=== PATIENT | male | born 1960 | race Caucasian/White ===

== ENCOUNTER → 2019-04-28 10:05 | Outpatient (CLI) | payer OTHER, MEDICAID, SELFPAY ==
[2019-04-28 11:19] LABS: Add Manual Diff / Slide Review NO; Basophils Absolute Auto 0 /uL (0-100); Basophils Percent Auto 0.5 % (0-2); Eosinophils Absolute Auto 300 /uL (0-450); Eosinophils Percent Auto 4.4 % (2-4); Lymphocytes Absolute Auto 1300 /uL (1100-4500); Lymphocytes Percent Auto 22.3 % (25-40); Mean Corpuscular Hemoglobin 29.4 PG (26-34); Mean Corpuscular Volume 86.4 fL (80-100); Monocytes Absolute Auto 600 /uL (0-900); Monocytes Percent Auto 9.5 % (3-14); Neutrophils Absolute Auto 3800 /uL (1500-7000); Neutrophils Percent Auto 63.3 % (50-75); Platelet Count 263 X10^3/uL (150-400); Red Cell Distribution Width 13.3 % (11.6-14.8)
[2019-04-28 11:52] LABS: Alanine Aminotransferase 43 IU/L (21-72); Albumin 4.6 g/dL (3.5-5.0); Albumin Globulin Ratio 1.4 (1.0-2.8); Alkaline Phosphatase 109 U/L (38-126); Aspartate Aminotransferase 33 IU/L (17-59); BUN Creatinine Ratio 18.8 (6-22); Bilirubin Total 0.7 mg/dL (0.2-1.3); Blood Urea Nitrogen 15 mg/dL (9-20); Calcium 9.8 mg/dL (8.4-10.2); Carbon Dioxide 30 mmol/L (22-32); Chloride 101 mmol/L (98-107); Cholesterol 279 mg/dL (140-199); Estimated Glomerular Filt Rate > 60.0 mL/min (>60); Globulin 3.4 g/dL (1.7-4.1); Glucose 121 mg/dL (70-100); HDL Cholesterol 49 mg/dL (40-60); HEMOLYSIS < 15 (0-50); LDL Cholesterol Calculated 206 mg/dL (<100); Potassium 4.6 mmol/L (3.4-5.1); Sodium 140 mmol/L (137-145); Triglycerides 121 mg/dL (35-150)
[2019-04-28 12:22] LABS: Prostate Specific Antigen 2.31 ng/mL (0.10-4.00)
[2019-04-29 14:56] LABS: Lyme SCREEN w/ Reflex IgG IgM < 0.90 (< 0.90)
== END ==
PROVIDERS: Visit Provider Hospitalist
DX: R59.9 Enlarged lymph nodes, unspecified (principal); R07.89 Other chest pain
CPT/HCPCS: 36415; 80053; 80061; 84153; 85025; 86618

== ENCOUNTER → 2019-05-13 11:03 | Outpatient (CLI) | payer OTHER, MEDICAID, SELFPAY ==
[2019-05-13 12:15] LABS: Hemoglobin A1C% w Est Avg Glu 6.2 % (4.0-6.0)
[2019-05-13 13:15] LABS: Cholesterol 174 mg/dL (140-199); HDL Cholesterol 44 mg/dL (40-60); LDL Cholesterol Calculated 98 mg/dL (<100); Triglycerides 160 mg/dL (35-150)
== END ==
PROVIDERS: PCP Hospitalist; Visit Provider Hospitalist
DX: E78.5 Hyperlipidemia, unspecified (principal); R73.09 Other abnormal glucose
CPT/HCPCS: 36415; 80061; 83036

== ENCOUNTER → 2019-05-29 09:07 | Outpatient (CLI) | payer OTHER, MEDICAID, SELFPAY ==
--- NOTE | 2019-05-29 10:33 | PM.TREADMILL ---
Cardiac Stress Test Report Referral & Results Date Patient Seen: 05/29/19 Requesting provider: Amy Espinoza Indication: Chest pain Rest ECG: Right bundle branch block Procedure Note: Today following both written and verbal informed consent the patient was exercised according to a standard Isidro protocol patient went for a total of 7 minutes 2nd achieving a maximum heart rate of 166 maximum systolic blood pressure of 194. This is approximately 10.1 METS. Exercise was terminated at this point because of targets were met. Patient was also given Cardiolite through a previously started Hep-Lock IV by the ground nuclear weapons assembly officer approximately 1 minute prior to the cessation of exercise. There were no ST-T segment changes identified in the setting of a baseline abnormal ECG At end exercise patient went into a left bundle branch block conduction pattern it appeared that was asymptomatic. He spontaneously converted back to sinus tachycardia Occasional PACs and PVCs are also identified Functional aerobic impairment rated 15% of the sedentary scale Impression: Abnormal ECG a baseline No clear ischemia on ECG Please see perfusion imaging report as well Please note: Actual ECG tracings can be found in the PACS system.
--- NOTE | 2019-06-01 20:22 | DI.NM.S_ITS ---
DATE OF SERVICE: 05/29/2019 PROCEDURE: Exercise perfusion study. INDICATIONS: Hypertension, chest pain, hyperlipidemia. RADIOPHARMACEUTICAL: 19.4 mCi technetium-99m Myoview IV was injected at stress and 20.2 mCi technetium-99m Myoview IV was injected at rest. CARDIAC STRESS: Patient underwent exercise perfusion study under the supervision of an attending staff. Patient walked on Isidro protocol for 7 minutes 01 seconds and achieved 103% of target heart rate with normal blood pressure response. He achieved 10.1 METs of workload. Functional aerobic impairment +25%. Had mild chest discomfort. Baseline EKG revealed sinus rhythm with underlying right bundle branch block. Stress EKG did not reveal any obvious inducible ischemic changes. Occasional PACs and PVCs are seen. No significant sustained arrhythmias seen. RAW DATA: There was increased subdiaphragmatic activity. GATED STUDY: Resting LV ejection 74, and stress LV ejection fraction 89%. No obvious wall motion abnormalities. Resting end-diastolic volume is 88 mL. No transient ischemic dilatation. TID ratio is 0.8, which is within normal limits. Lung/heart ratio is 0.28, which is within normal limits. MYOCARDIAL PERFUSION SCAN: Stress supine and resting supine images revealed small-sized mildly decreased perfusion of inferior apex, as well as inferior septum which got resolved during prone images suggestive of tissue attenuation artifact. Normal myocardial perfusion seen during stress prone images. CONCLUSION: I will call this study a normal myocardial perfusion study. Patient walked on Isidro protocol for 7 minutes and 01 seconds. Functional aerobic impairment +25%. Normal blood pressure and heart rate response. Baseline EKG revealed right bundle branch block. No sustained arrhythmias seen. Overall, left ventricular (LV) function is preserved. Overall, this is a low-risk myocardial perfusion scan. Betito Michaud - TANJA/judi/ab doc#: [id number]/job#: [id number] dd: 06/01/2019 18:03:00 dt: 06/01/2019 20:15:00 DICTATING MD/COPIES TO: Joshua Nunez MD COPIES MNE: ZULMA
== END ==
PROVIDERS: PCP Hospitalist; Visit Provider Hospitalist
DX: R07.89 Other chest pain (principal); I45.10 Unspecified right bundle-branch block; I10 Essential (primary) hypertension; E78.5 Hyperlipidemia, unspecified
CPT/HCPCS: 78452; 93016; 93017; 93018; A9502

== ENCOUNTER → 2019-07-08 14:59 | Outpatient (CLI) | payer OTHER, MEDICAID, SELFPAY ==
[2019-07-08 15:30] LABS: Erythrocyte Sedimentation Rate 54 MM/HR (0-15)
[2019-07-10 19:25] LABS: ANA Screen, IFA Negative (Negative)
== END ==
PROVIDERS: PCP Hospitalist; Visit Provider Hospitalist
DX: M54.9 Dorsalgia, unspecified (principal)
CPT/HCPCS: 36415; 85651; 86038

== ENCOUNTER → 2019-07-10 10:23 | Outpatient (CLI) | payer OTHER, MEDICAID, SELFPAY | PROVIDERS: PCP Hospitalist; Visit Provider Hospitalist | DX: M79.10 Myalgia, unspecified site (principal) ==

== ENCOUNTER → 2019-07-13 13:13 | Outpatient (CLI) | payer OTHER, MEDICAID, SELFPAY ==
--- NOTE | 2019-07-13 13:15 | DI.RAD.S_ITS ---
PROCEDURE: XR LUMBAR SPINE 2-3V INDICATIONS: back pain TECHNIQUE: 3 views of the lumbar spine were acquired. COMPARISON: None. FINDINGS: Bones: 5 zak-[id number]-[id number] vertebrae are present. There is normal bony alignment. There is a mild mild to moderate degree of degenerative disc height reduction at L5-S1, and facet osteoarthritis in this area is moderate to the degree that spinal and foraminal stenosis at L5-S1 may be present. No vertebral body compression fractures. No suspicious bony lesions. Soft tissues: Overlying bowel gas pattern is normal. No suspicious soft tissue calcifications. IMPRESSION: Mild to moderate degenerative disc disease and facet osteoarthritis at the L5-S1 level combining to produce likelihood of spinal and foraminal stenosis. Dictated by: Ector Rawls M.D. on 07/13/2019 at 14:10 Approved by: Ector Rawls M.D. on 07/13/2019 at 14:11
== END ==
PROVIDERS: PCP Hospitalist; Visit Provider Hospitalist
DX: M54.9 Dorsalgia, unspecified (principal); M51.37 Other intervertebral disc degeneration, lumbosacral region; M47.817 Spondylosis without myelopathy or radiculopathy, lumbosacral region
CPT/HCPCS: 72100

== ENCOUNTER 2019-08-19 13:45 | Outpatient (RCR) | payer OTHER, MEDICAID, SELFPAY ==
--- NOTE | 2019-07-10 16:51 | PT.OIE ---
Current Diagnoses Low back pain (07/10/19) Past Medical History (Last Reviewed 07/08/19 @ 15:01 by Amy Espinoza MD) HTN (hypertension) (Acute) Provider Visit Care Team Role Provider Type Amy Espinoza MD Attending Provider Physician Primary Care Provider Specialty: Internal Medicine Address: [address] [place] [address], [id number] Email: Physical Therapy Initial Evaluation PT-OP-A Visit Information Start: 07/10/19 14:42 Freq: Status: Active Protocol: Document 07/10/19 13:45 DCW (Rec: 07/10/19 15:15 DCW [id number]) Out-Patient Physical Therapy Visit Information Visit Information Visit Type Initial Evaluation Visit Start Time 13:45 Visit Stop Time 14:30 Total Visit Minutes 45 Visit Number 1 Number of WEB MARKETING SPECIALIST Visits 0 Evaluation Information Evaluation Date 07/10/19 PT-OP-B Current Condition Start: 07/10/19 14:42 Freq: Status: Active Protocol: Document 07/10/19 13:45 DCW (Rec: 07/10/19 15:15 DCW [id number]) Current Condition History of Current Condition Onset Date 6 month history Current Complaints thoracic pain, lumbar pain, radicular right leg pain History of Current Condition Pt is a 58 year old male presenting with a six month history of mid- and low-back pain. Pt reports there was no instigating injury, it just flared up unexpectedly one day . Pt notes that over the last six months, it has not really changed much, overall, but seems to get better and worse randomly. Pt admits that lifting seems to flare it up, but the pain never really goes away, so its hard to tell what all makes it feel worse or better. Pt reports that in the morning, it typically takes him more than an hour to move around enough to loosen up. 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 Pt also notes a life-long history of hip immobility, reporting that when he was in school, he would always W sit, as sitting cross-legged is painful for him, and he is still significantly limited with external rotation. Pt reports his pain initially began in his thoracic spine, and radiated out along his ribs. Over the past few months , his lumbar spine has also been worsening, and it often causes radicular pain down his right leg. Pt also always sits with his wallet in his back pocket, and notes that it causes enough pain that he sometimes needs to switch it to the other side. Future Testing and Treatments Planned Pt has referral for lumbar x- ray Prior Functional Status Baseline Function- ADL's Independent Baseline Function- Mobility Independent Current Functional Impairments (Reported) Functional Limitations- Work/School Pt only able to tolerate 16 hour work weeks Functional Limitations- Other Pt takes one hour after waking up to try and move around and loosen up enough to decrease his pain PT-OP-C Subjective Start: 07/10/19 14:42 Freq: Status: Active Protocol: Document 07/10/19 13:45 DCW (Rec: 07/10/19 15:15 DCW [id number]) OP-PT Subjective Patient Comments Patient Comments Pt reports that pain varies day-to-day, but overall has not worsened or improved since beginning six months ago. Patient Reported Progress Same OP-PT Pain Assessment Pain Assessment Grid Paper Pain Assessment Grid Completed Yes Location Thoracic spine Intensity 7 Scale Used Numeric (1 - 10) Description Radiating Radiating Location bilaterally radiates out around torso along ribs 8-10 Lumbar spine Intensity 7 Scale Used Numeric (1 - 10) Description Radiating Radiating Location Posterior thigh wrapping around front along knee PT-OP-F Manual Assessment Start: 07/10/19 14:42 Freq: Status: Active Protocol: Document 07/10/19 13:45 DCW (Rec: 07/10/19 15:15 DCW [id number]) Manual Assessments Soft Tissue Assessment Soft Tissue Mobility Assessment Moderate-severe tone: thoracic paraspinals, lumbar paraspinals, right piriformis, right QL Joint Mobility Assessment Joint Mobility Assessment Rib 8 raised bilaterally, L>R. Rib 10 raised L Moderate pain with P->A mobilization of T8-10, L3-L5 PT-OP-K Range of Motion Start: 07/10/19 14:42 Freq: Status: Active Protocol: Document 07/10/19 13:45 DCW (Rec: 07/10/19 15:15 DCW [id number]) Lumbar Spine Range of Motion Lumbar Spine Active Degrees Testing Position Standing Flexion 45 Extension 15 Lateral Flexion Left 58 Lateral Flexion Right 60 Comments Lateral flexion measured in cm : distance from fingertips to floor Hip Goniometric Range of Motion Hip Right Active Internal Rotation 65 External Rotation 8 Left Active Testing Position Sitting Internal Rotation 68 External Rotation 10 PT-OP-L Special Tests Start: 07/10/19 14:42 Freq: Status: Active Protocol: Document 07/10/19 13:45 DCW (Rec: 07/10/19 15:15 DCW [id number]) Special Tests Lumbar Spine Special Tests Straight Leg Raise Test Results Negative passive, positive active Standing Flexion Test Results Negative Slump Test Results Negative Passive Neck Flexion Test Results Negative Compression Test Results Negative Hip Special Tests Piriformis Test Results Significant tenderness and tone, no radicular symptoms ASIM Test Results Lateral hip pain due to limited ER bilaterally PT-OP-Q Treatments Start: 07/10/19 14:42 Freq: Status: Active Protocol: Document 07/10/19 13:45 DCW (Rec: 07/10/19 15:15 DCW [id number]) Therapeutic Exercises Supine Exercises Piriformis Stretch Supine Exercise Name Figure-4, Ampy-po-wmrtqudb shoulder Side right Comments Causes pain due to limited ER Self-Care/Home Management Treatment Education Patient Education Home Exercise Program Other Education Pt unable to toelrate piriformis stretch secondary to severely limited ER. Instructed to use tennis ball to work on release of piriformis, as well as to begin placing wallet in front pocket. PT-OP-T Assessment and Plan Start: 07/10/19 14:42 Freq: Status: Active Protocol: Document 07/10/19 13:45 DCW (Rec: 07/10/19 15:15 DCW [id number]) Physical Therapy Assessment Rehab Potential Rehabilitation Potential Good Evaluation Complexity Number of Personal Factors/Comorbidities 1-2 Number of Body Systems Impaired 4 or More Clinical Presentation at Evaluation Evolving Impairments Impairments Functional Activities Pain Posture ROM Soft Tissue Mobility Strength Tone Goals Four Impairment Pt wallet in back pocket causes increased pain in posterior hips and low ba Short Term Goal (STG) Pt to completely stop placing wallet in back pocket STG Duration 07/24/19 Three Impairment Severely limited hip external rotation Mcc Goal (LTG) Hip ER bilaterally to >20? LTG Duration 09/09/19 Two Impairment Pt only able to tolerate a 16 hour work week due to back pain Pe Teacher Goal (LTG) Pt to return to full 40 hour work week with pain at no worst than 4/10 LTG Duration 09/09/19 One Impairment Pt does not have an appropriate home exercise program Short Term Goal (STG) Pt to be independent and compliant with an appropraite HEP STG Duration 08/10/19 Assessment Summary Assessment Pt presents with signs and symptoms of likely lumbar degenerative disc disease, hypertonia through his thoracolumbar paraspinals, bilateral QL, and piriformis, severely limited hip external rotation as well as mild displacement of his L eighth and tenth ribs. Pt did appear to tolerate trial rib mobilizations well, and reported feeling improvement afterward. Pt should continue to progress with skilled therapy focusing on STM, joint mobilizations, hip ROM, hip and core strengthening, and training for body mechanics and to stop placing wallet in back pocket. Physical Therapy Plan Frequency and Duration Frequency of Treatment 2x/Week Duration of Treatment 2 months Plan of Care Start Date 07/10/19 Plan of Care End Date 09/09/19 Therapeutic Interventions Therapeutic Interventions Aquatic Therapy Home Exercise Program Joint Mobilizations Manual Therapy Neuromuscular Re-education Patient/Caregiver Education Self-Care/Home Management Soft Tissue Mobilization Therapeutic Exercises Next Visit Focus/Plan Next Note Type Treatment Note Next Visit Plan STM, hip ROM/strengthening, joint mobilization ribs 8-10, low back
--- NOTE | 2019-07-10 16:52 | PT.OPPOC ---
Current Diagnoses Low back pain (07/10/19) Provider Visit Care Team Role Provider Type Amy Espinoza MD Attending Provider Physician Primary Care Provider Specialty: Internal Medicine Address: [address] [place] [address], [id number] Email: Plan Of Care PT-OP-T Assessment and Plan Start: 07/10/19 14:42 Freq: Status: Active Protocol: Document 07/10/19 13:45 DCW (Rec: 07/10/19 15:15 DCW [id number]) Physical Therapy Assessment Rehab Potential Rehabilitation Potential Good Evaluation Complexity Number of Personal Factors/Comorbidities 1-2 Number of Body Systems Impaired 4 or More Clinical Presentation at Evaluation Evolving Impairments Impairments Functional Activities Pain Posture ROM Soft Tissue Mobility Strength Tone Goals Four Impairment Pt wallet in back pocket causes increased pain in posterior hips and low ba Short Term Goal (STG) Pt to completely stop placing wallet in back pocket STG Duration 07/24/19 Three Impairment Severely limited hip external rotation Senior Care Goal (LTG) Hip ER bilaterally to >20? LTG Duration 09/09/19 Two Impairment Pt only able to tolerate a 16 hour work week due to back pain Behavior Interventionist Goal (LTG) Pt to return to full 40 hour work week with pain at no worst than 4/10 LTG Duration 09/09/19 One Impairment Pt does not have an appropriate home exercise program Short Term Goal (STG) Pt to be independent and compliant with an appropraite HEP STG Duration 08/10/19 Assessment Summary Assessment Pt presents with signs and symptoms of likely lumbar degenerative disc disease, hypertonia through his thoracolumbar paraspinals, bilateral QL, and piriformis, severely limited hip external rotation as well as mild displacement of his L eighth and tenth ribs. Pt did appear to tolerate trial rib mobilizations well, and reported feeling improvement afterward. Pt should continue to progress with skilled therapy focusing on STM, joint mobilizations, hip ROM, hip and core strengthening, and training for body mechanics and to stop placing wallet in back pocket. Physical Therapy Plan Frequency and Duration Frequency of Treatment 2x/Week Duration of Treatment 2 months Plan of Care Start Date 07/10/19 Plan of Care End Date 09/09/19 Therapeutic Interventions Therapeutic Interventions Aquatic Therapy Home Exercise Program Joint Mobilizations Manual Therapy Neuromuscular Re-education Patient/Caregiver Education Self-Care/Home Management Soft Tissue Mobilization Therapeutic Exercises Next Visit Focus/Plan Next Note Type Treatment Note Next Visit Plan STM, hip ROM/strengthening, joint mobilization ribs 8-10, low back Plan of Care Dates Plan of Care Start Date 07/10/19 Plan of Care End Date 09/09/19 Please Sign and Return: I have reviewed this Plan of Care and certify that the skilled therapy services above are required to meet the patient?s needs. Physician Signature Date Printed Name and Credentials Clinical Instructor Signature Printed Name and Credentials
--- NOTE | 2019-07-28 14:50 | PT.OTN ---
Current Diagnoses Low back pain (07/28/19) Physical Therapy Treatment Note PT-OP-A Visit Information Start: 07/10/19 14:42 Freq: Status: Active Protocol: Document 07/28/19 14:41 [facility] (Rec: 07/28/19 14:50 [facility] [id number]) Out-Patient Physical Therapy Visit Information Visit Information Visit Type Treatment Note Visit Start Time 09:45 Visit Stop Time 10:30 Total Visit Minutes 45 Visit Number 2 Number of SPECIAL EDUCATION PARAEDUCATOR Visits 0 Evaluation Information Evaluation Date 07/10/19 PT-OP-B Current Condition Start: 07/10/19 14:42 Freq: Status: Active Protocol: Document 07/10/19 13:45 DCW (Rec: 07/10/19 15:15 DCW [id number]) Current Condition History of Current Condition Onset Date 6 month history Current Complaints thoracic pain, lumbar pain, radicular right leg pain History of Current Condition Pt is a 58 year old male presenting with a six month history of mid- and low-back pain. Pt reports there was no instigating injury, it just flared up unexpectedly one day . Pt notes that over the last six months, it has not really changed much, overall, but seems to get better and worse randomly. Pt admits that lifting seems to flare it up, but the pain never really goes away, so its hard to tell what all makes it feel worse or better. Pt reports that in the morning, it typically takes him more than an hour to move around enough to loosen up. 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 Pt also notes a life-long history of hip immobility, reporting that when he was in school, he would always W sit, as sitting cross-legged is painful for him, and he is still significantly limited with external rotation. Pt reports his pain initially began in his thoracic spine, and radiated out along his ribs. Over the past few months , his lumbar spine has also been worsening, and it often causes radicular pain down his right leg. Pt also always sits with his wallet in his back pocket, and notes that it causes enough pain that he sometimes needs to switch it to the other side. Future Testing and Treatments Planned Pt has referral for lumbar x- ray Prior Functional Status Baseline Function- ADL's Independent Baseline Function- Mobility Independent Current Functional Impairments (Reported) Functional Limitations- Work/School Pt only able to tolerate 16 hour work weeks Functional Limitations- Other Pt takes one hour after waking up to try and move around and loosen up enough to decrease his pain PT-OP-C Subjective Start: 07/10/19 14:42 Freq: Status: Active Protocol: Document 07/28/19 14:41 [facility] (Rec: 07/28/19 14:50 [facility] [email or web address]) OP-PT Subjective Patient Comments Patient Comments Betito reports he is doing better than he was two weeks ago. He has been working on his stretches at home PT-OP-F Manual Assessment Start: 07/10/19 14:42 Freq: Status: Active Protocol: Document 07/10/19 13:45 DCW (Rec: 07/10/19 15:15 DCW [id number]) Manual Assessments Soft Tissue Assessment Soft Tissue Mobility Assessment Moderate-severe tone: thoracic paraspinals, lumbar paraspinals, right piriformis, right QL Joint Mobility Assessment Joint Mobility Assessment Rib 8 raised bilaterally, L>R. Rib 10 raised L Moderate pain with P->A mobilization of T8-10, L3-L5 PT-OP-K Range of Motion Start: 07/10/19 14:42 Freq: Status: Active Protocol: Document 07/10/19 13:45 DCW (Rec: 07/10/19 15:15 DCW [id number]) Lumbar Spine Range of Motion Lumbar Spine Active Degrees Testing Position Standing Flexion 45 Extension 15 Lateral Flexion Left 58 Lateral Flexion Right 60 Comments Lateral flexion measured in cm : distance from fingertips to floor Hip Goniometric Range of Motion Hip Right Active Internal Rotation 65 External Rotation 8 Left Active Testing Position Sitting Internal Rotation 68 External Rotation 10 PT-OP-L Special Tests Start: 07/10/19 14:42 Freq: Status: Active Protocol: Document 07/10/19 13:45 DCW (Rec: 07/10/19 15:15 DCW [id number]) Special Tests Lumbar Spine Special Tests Straight Leg Raise Test Results Negative passive, positive active Standing Flexion Test Results Negative Slump Test Results Negative Passive Neck Flexion Test Results Negative Compression Test Results Negative Hip Special Tests Piriformis Test Results Significant tenderness and tone, no radicular symptoms ASIM Test Results Lateral hip pain due to limited ER bilaterally PT-OP-Q Treatments Start: 07/10/19 14:42 Freq: Status: Active Protocol: Document 07/28/19 14:41 [facility] (Rec: 07/28/19 14:50 [facility] [email or web address]) Therapeutic Exercises Supine Exercises 6 Supine Exercise Name 1/2 foam roll stretch 5 Supine Exercise Name iliopsoas stretch in azalea test position 4 Supine Exercise Name single knee to chest 3 Supine Exercise Name ITB stretch with strap 2 Supine Exercise Name adductor stretch with strap 1 Supine Exercise Name Hamstring stretch with strap and with hands behind the knee Comments with hands behind the knee I had Betito flex and extend his leg Piriformis Stretch Supine Exercise Name Figure-4, Swtm-qy-hghestwc shoulder Side right Prone Exercises 1 Prone Exercise Name prone quad stretch Comments strap use for HEP Manual Therapy Treatment Joint Mobilizations 2 Joint rib cage mobilization Comments sore on the right side with rib cage mobs 1 Joint PA mobs thoracic spine in prone PT-OP-T Assessment and Plan Start: 07/10/19 14:42 Freq: Status: Active Protocol: Document 07/28/19 14:41 [facility] (Rec: 07/28/19 14:50 [facility] [id number]) Physical Therapy Assessment Assessment Summary Assessment Betito did well with stretches today, he was able to tolerate them all. He is very limited with hip ER but tolerated both knee across chest and figure 4 position without lifting up his legs today. He has stopped placing his wallet in his back pocket Physical Therapy Plan Frequency and Duration Frequency of Treatment 2x/Week Duration of Treatment 2 months Plan of Care Start Date 07/10/19 Plan of Care End Date 09/09/19 Next Visit Focus/Plan Next Note Type Treatment Note Next Visit Plan STM, hip ROM/strengthening, joint mobilization ribs 8-10, low back. Pt may benefit from diaphragmatic breathing with rib cage excursion
--- NOTE | 2019-07-30 17:06 | PT.OTN ---
Current Diagnoses Low back pain (07/30/19) Physical Therapy Treatment Note PT-OP-A Visit Information Start: 07/10/19 14:42 Freq: Status: Active Protocol: Document 07/30/19 11:54 AR (Rec: 07/30/19 12:10 AR [email or web address]) Out-Patient Physical Therapy Visit Information Visit Information Visit Type Treatment Note Visit Start Time 09:00 Visit Stop Time 09:43 Total Visit Minutes 43 Visit Number [address] JUSTICE Visits 0 PT-OP-B Current Condition Start: 07/10/19 14:42 Freq: Status: Active Protocol: Document 07/10/19 13:45 DCW (Rec: 07/10/19 15:15 DCW [id number]) Current Condition History of Current Condition Onset Date 6 month history Current Complaints thoracic pain, lumbar pain, radicular right leg pain History of Current Condition Pt is a 58 year old male presenting with a six month history of mid- and low-back pain. Pt reports there was no instigating injury, it just flared up unexpectedly one day . Pt notes that over the last six months, it has not really changed much, overall, but seems to get better and worse randomly. Pt admits that lifting seems to flare it up, but the pain never really goes away, so its hard to tell what all makes it feel worse or better. Pt reports that in the morning, it typically takes him more than an hour to move around enough to loosen up. 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 Pt also notes a life-long history of hip immobility, reporting that when he was in school, he would always W sit, as sitting cross-legged is painful for him, and he is still significantly limited with external rotation. Pt reports his pain initially began in his thoracic spine, and radiated out along his ribs. Over the past few months , his lumbar spine has also been worsening, and it often causes radicular pain down his right leg. Pt also always sits with his wallet in his back pocket, and notes that it causes enough pain that he sometimes needs to switch it to the other side. Future Testing and Treatments Planned Pt has referral for lumbar x- ray Prior Functional Status Baseline Function- ADL's Independent Baseline Function- Mobility Independent Current Functional Impairments (Reported) Functional Limitations- Work/School Pt only able to tolerate 16 hour work weeks Functional Limitations- Other Pt takes one hour after waking up to try and move around and loosen up enough to decrease his pain PT-OP-C Subjective Start: 07/10/19 14:42 Freq: Status: Active Protocol: Document 07/30/19 11:54 AR (Rec: 07/30/19 12:10 AR [email or web address]) OP-PT Subjective Patient Comments Patient Comments Pt reports compliance with stretches and said they have improved his back pain 100%. He said he has never had any restrictions but he is still having some trouble with walking and getting out of bed d/t pain. PT-OP-F Manual Assessment Start: 07/10/19 14:42 Freq: Status: Active Protocol: Document 07/10/19 13:45 DCW (Rec: 07/10/19 15:15 DCW [id number]) Manual Assessments Soft Tissue Assessment Soft Tissue Mobility Assessment Moderate-severe tone: thoracic paraspinals, lumbar paraspinals, right piriformis, right QL Joint Mobility Assessment Joint Mobility Assessment Rib 8 raised bilaterally, L>R. Rib 10 raised L Moderate pain with P->A mobilization of T8-10, L3-L5 PT-OP-K Range of Motion Start: 07/10/19 14:42 Freq: Status: Active Protocol: Document 07/10/19 13:45 DCW (Rec: 07/10/19 15:15 DCW [id number]) Lumbar Spine Range of Motion Lumbar Spine Active Degrees Testing Position Standing Flexion 45 Extension 15 Lateral Flexion Left 58 Lateral Flexion Right 60 Comments Lateral flexion measured in cm : distance from fingertips to floor Hip Goniometric Range of Motion Hip Right Active Internal Rotation 65 External Rotation 8 Left Active Testing Position Sitting Internal Rotation 68 External Rotation 10 PT-OP-L Special Tests Start: 07/10/19 14:42 Freq: Status: Active Protocol: Document 07/10/19 13:45 DCW (Rec: 07/10/19 15:15 DCW [id number]) Special Tests Lumbar Spine Special Tests Straight Leg Raise Test Results Negative passive, positive active Standing Flexion Test Results Negative Slump Test Results Negative Passive Neck Flexion Test Results Negative Compression Test Results Negative Hip Special Tests Piriformis Test Results Significant tenderness and tone, no radicular symptoms ASIM Test Results Lateral hip pain due to limited ER bilaterally PT-OP-Q Treatments Start: 07/10/19 14:42 Freq: Status: Active Protocol: Document 07/30/19 11:54 AR (Rec: 07/30/19 12:10 AR [email or web address]) Therapeutic Exercises Supine Exercises TA activation Supine Exercise Name TA iso, with marches & bent knee fall outs Side bilateral Reps/Minutes 20 ea Comments pt able to engage TA and stabilize during LE movements 5 Supine Exercise Name iliopsoas stretch in azalea test position Comments reviewed from HEP Piriformis Stretch Supine Exercise Name Figure-4, Frbr-tm-[id number] shoulder Side right Therapeutic Activity Therapeutic Activity diaphragmatic breathing Name diaphragmatic breathing w/rib expansion focus Reps/Minutes 6 min Comments pt unable to acheive rib excusion at first, cued to relax completely with exhales. pt holding ribs laterally for cueing. added to HEP weight acceptance Name in mirror, focusing on shifting weight w/o lateral trunk lean or pelvic rot Reps/Minutes 6 min Comments B stagger stance Manual Therapy Treatment Soft Tissue Mobilization pectorals Body Location min & tucker Mobilization Type Strumming,Sustained Pressure Intensity/Depth Deep Body Position Supine Comments 90/90 ER with contract/relax Joint Mobilizations 2 Joint rib cage mobilization Comments reported mobilizations felt good PT-OP-T Assessment and Plan Start: 07/10/19 14:42 Freq: Status: Active Protocol: Document 07/30/19 11:54 AR (Rec: 07/30/19 12:10 AR [email or web address]) Physical Therapy Assessment Goals Four Impairment Pt wallet in back pocket causes increased pain in posterior hips and low ba Short Term Goal (STG) Pt to completely stop placing wallet in back pocket STG Duration 07/24/19 Three Impairment Severely limited hip external rotation Fpc Goal (LTG) Hip ER bilaterally to >20? LTG Duration 09/09/19 Two Impairment Pt only able to tolerate a 16 hour work week due to back pain Fpc Goal (LTG) Pt to return to full 40 hour work week with pain at no worst than 4/10 LTG Duration 09/09/19 One Impairment Pt does not have an appropriate home exercise program Short Term Goal (STG) Pt to be independent and compliant with an appropraite HEP STG Duration 08/10/19 Assessment Summary Assessment Pt presented with dec stride length and slight lateral trunk lean. Pt has been compliant with stretches and feels they have solved the majority of his problem. Rib mobility responded well to manual therapy and pt reported less tenderness today than previous sessions. Physical Therapy Plan Frequency and Duration Frequency of Treatment 2x/Week Duration of Treatment 2 months Plan of Care Start Date 07/10/19 Plan of Care End Date 09/09/19 Next Visit Focus/Plan Next Note Type Treatment Note Next Visit Plan review diaphragmatic breathing with rib cage excusion and TA activation. STM, hip moblizations and strengthening .
--- NOTE | 2019-08-04 15:51 | PT.OTN ---
Current Diagnoses Low back pain (08/04/19) Physical Therapy Treatment Note PT-OP-A Visit Information Start: 07/10/19 14:42 Freq: Status: Active Protocol: Document 08/04/19 12:47 LRN (Rec: 08/04/19 13:35 LRN [id number]) Out-Patient Physical Therapy Visit Information Visit Information Visit Type Treatment Note Visit Start Time 12:47 Visit Stop Time 13:44 Total Visit Minutes 57 Visit Number 4 Number of [employer] Visits 0 Evaluation Information Evaluation Date 07/10/19 PT-OP-B Current Condition Start: 07/10/19 14:42 Freq: Status: Active Protocol: Document 07/10/19 13:45 DCW (Rec: 07/10/19 15:15 DCW [id number]) Current Condition History of Current Condition Onset Date 6 month history Current Complaints thoracic pain, lumbar pain, radicular right leg pain History of Current Condition Pt is a 58 year old male presenting with a six month history of mid- and low-back pain. Pt reports there was no instigating injury, it just flared up unexpectedly one day . Pt notes that over the last six months, it has not really changed much, overall, but seems to get better and worse randomly. Pt admits that lifting seems to flare it up, but the pain never really goes away, so its hard to tell what all makes it feel worse or better. Pt reports that in the morning, it typically takes him more than an hour to move around enough to loosen up. 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 Pt also notes a life-long history of hip immobility, reporting that when he was in school, he would always W sit, as sitting cross-legged is painful for him, and he is still significantly limited with external rotation. Pt reports his pain initially began in his thoracic spine, and radiated out along his ribs. Over the past few months , his lumbar spine has also been worsening, and it often causes radicular pain down his right leg. Pt also always sits with his wallet in his back pocket, and notes that it causes enough pain that he sometimes needs to switch it to the other side. Future Testing and Treatments Planned Pt has referral for lumbar x- ray Prior Functional Status Baseline Function- ADL's Independent Baseline Function- Mobility Independent Current Functional Impairments (Reported) Functional Limitations- Work/School Pt only able to tolerate 16 hour work weeks Functional Limitations- Other Pt takes one hour after waking up to try and move around and loosen up enough to decrease his pain PT-OP-C Subjective Start: 07/10/19 14:42 Freq: Status: Active Protocol: Document 08/04/19 12:47 LRN (Rec: 08/04/19 13:35 LRN [id number]) OP-PT Subjective Patient Comments Patient Comments Able to sleep through the night the last few nights. PT-OP-F Manual Assessment Start: 07/10/19 14:42 Freq: Status: Active Protocol: Document 07/10/19 13:45 DCW (Rec: 07/10/19 15:15 DCW [id number]) Manual Assessments Soft Tissue Assessment Soft Tissue Mobility Assessment Moderate-severe tone: thoracic paraspinals, lumbar paraspinals, right piriformis, right QL Joint Mobility Assessment Joint Mobility Assessment Rib 8 raised bilaterally, L>R. Rib 10 raised L Moderate pain with P->A mobilization of T8-10, L3-L5 PT-OP-K Range of Motion Start: 07/10/19 14:42 Freq: Status: Active Protocol: Document 07/10/19 13:45 DCW (Rec: 07/10/19 15:15 DCW [id number]) Lumbar Spine Range of Motion Lumbar Spine Active Degrees Testing Position Standing Flexion 45 Extension 15 Lateral Flexion Left 58 Lateral Flexion Right 60 Comments Lateral flexion measured in cm : distance from fingertips to floor Hip Goniometric Range of Motion Hip Right Active Internal Rotation 65 External Rotation 8 Left Active Testing Position Sitting Internal Rotation 68 External Rotation 10 PT-OP-L Special Tests Start: 07/10/19 14:42 Freq: Status: Active Protocol: Document 07/10/19 13:45 DCW (Rec: 07/10/19 15:15 DCW [id number]) Special Tests Lumbar Spine Special Tests Straight Leg Raise Test Results Negative passive, positive active Standing Flexion Test Results Negative Slump Test Results Negative Passive Neck Flexion Test Results Negative Compression Test Results Negative Hip Special Tests Piriformis Test Results Significant tenderness and tone, no radicular symptoms ASIM Test Results Lateral hip pain due to limited ER bilaterally PT-OP-Q Treatments Start: 07/10/19 14:42 Freq: Status: Active Protocol: Document 08/04/19 12:47 LRN (Rec: 08/04/19 13:35 LRN [id number]) Therapeutic Exercises Supine Exercises 5 Supine Exercise Name iliopsoas stretch in azalea test position Comments reviewed from HEP Piriformis Stretch Supine Exercise Name Figure-4, Kpxy-to-lxaumsyu shoulder Side right Prone Exercises Stretch to hip ER's Prone Exercise Name CR stretch into ER f/b active hip ER Side left Reps/Minutes 3' Quad stretch w/belt Prone Exercise Name Quad stretch f/b active quad stretch Side left Reps/Minutes 3' Therapeutic Activity Therapeutic Activity diaphragmatic breathing Name diaphragmatic breathing w/rib expansion focus Reps/Minutes 6 min Comments pt unable to acheive rib excusion at first, cued to relax completely with exhales. pt holding ribs laterally for cueing. added to HEP Manual Therapy Treatment Joint Mobilizations 2 Joint rib cage mobilization Comments reported mobilizations felt good 1 Joint PA mobs thoracic spine in prone Self-Care/Home Management Treatment Education Patient Education Home Exercise Program Activities Self-Care/Home Management Activities Issued & Reviewed HEP: Hip stretches: Fig 4, Lateral hip, Piriformis. PT-OP-R Modalities Start: 07/10/19 14:42 Freq: Status: Active Protocol: Document 08/04/19 12:47 LRN (Rec: 08/04/19 15:50 LRN [id number]) Electric Stimulation Electric Stimulation Interferential Current (IFC) Body Location Midback > Low back Duration (Minutes) 10 Intensity 17 Target/Sweep Sweep Patient Position Prone Combined With Heat/Cold Hot Pack Hot Pack/Cold Pack Treatment Hot Pack Location Back Patient Position Prone Treatment Duration (minutes) 10 Comments Performed with EStim PT-OP-T Assessment and Plan Start: 07/10/19 14:42 Freq: Status: Active Protocol: Document 08/04/19 12:47 LRN (Rec: 08/04/19 15:50 LRN [id number]) Physical Therapy Assessment Assessment Summary Assessment Pt improved in his level of awareness for rib expansion with deep breathing after training. He would benefit from AP of T6, T7, T8. Physical Therapy Plan Frequency and Duration Frequency of Treatment 2x/Week Duration of Treatment 2 months Plan of Care Start Date 07/10/19 Plan of Care End Date 09/09/19 Next Visit Focus/Plan Next Note Type Treatment Note Next Visit Plan review TA activation. STM, hip & thoracic moblizations and core strengthening.
--- NOTE | 2019-08-06 12:54 | PT.OTN ---
Current Diagnoses Low back pain (08/06/19) Physical Therapy Treatment Note PT-OP-A Visit Information Start: 07/10/19 14:42 Freq: Status: Active Protocol: Document 08/06/19 09:45 AMB (Rec: 08/06/19 11:01 AMB [email or web address]) Out-Patient Physical Therapy Visit Information Visit Information Visit Type Treatment Note Visit Start Time 09:50 Visit Stop Time 10:40 Total Visit Minutes 50 Visit Number 5 Number of [employer]ATER HEL[employer] Visits 0 PT-OP-B Current Condition Start: 07/10/19 14:42 Freq: Status: Active Protocol: Document 07/10/19 13:45 DCW (Rec: 07/10/19 15:15 DCW [id number]) Current Condition History of Current Condition Onset Date 6 month history Current Complaints thoracic pain, lumbar pain, radicular right leg pain History of Current Condition Pt is a 58 year old male presenting with a six month history of mid- and low-back pain. Pt reports there was no instigating injury, it just flared up unexpectedly one day . Pt notes that over the last six months, it has not really changed much, overall, but seems to get better and worse randomly. Pt admits that lifting seems to flare it up, but the pain never really goes away, so its hard to tell what all makes it feel worse or better. Pt reports that in the morning, it typically takes him more than an hour to move around enough to loosen up. 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 Pt also notes a life-long history of hip immobility, reporting that when he was in school, he would always W sit, as sitting cross-legged is painful for him, and he is still significantly limited with external rotation. Pt reports his pain initially began in his thoracic spine, and radiated out along his ribs. Over the past few months , his lumbar spine has also been worsening, and it often causes radicular pain down his right leg. Pt also always sits with his wallet in his back pocket, and notes that it causes enough pain that he sometimes needs to switch it to the other side. Future Testing and Treatments Planned Pt has referral for lumbar x- ray Prior Functional Status Baseline Function- ADL's Independent Baseline Function- Mobility Independent Current Functional Impairments (Reported) Functional Limitations- Work/School Pt only able to tolerate 16 hour work weeks Functional Limitations- Other Pt takes one hour after waking up to try and move around and loosen up enough to decrease his pain PT-OP-C Subjective Start: 07/10/19 14:42 Freq: Status: Active Protocol: Document 08/06/19 09:45 AMB (Rec: 08/06/19 11:01 AMB [email or web address]) OP-PT Subjective Patient Comments Patient Comments Pt reports his chest pain that he felt was radiating from his mid back is way better. However he continues to have pain that radiates into his bilateral arms from his neck, and low back pain that radiates into his right posterior hip that worsens for days after he works. He reports 25# weight loss in the last few months due to not having an appetite due to the pain. PT-OP-F Manual Assessment Start: 07/10/19 14:42 Freq: Status: Active Protocol: Document 07/10/19 13:45 DCW (Rec: 07/10/19 15:15 DCW [id number]) Manual Assessments Soft Tissue Assessment Soft Tissue Mobility Assessment Moderate-severe tone: thoracic paraspinals, lumbar paraspinals, right piriformis, right QL Joint Mobility Assessment Joint Mobility Assessment Rib 8 raised bilaterally, L>R. Rib 10 raised L Moderate pain with P->A mobilization of T8-10, L3-L5 PT-OP-K Range of Motion Start: 07/10/19 14:42 Freq: Status: Active Protocol: Document 07/10/19 13:45 DCW (Rec: 07/10/19 15:15 DCW [id number]) Lumbar Spine Range of Motion Lumbar Spine Active Degrees Testing Position Standing Flexion 45 Extension 15 Lateral Flexion Left 58 Lateral Flexion Right 60 Comments Lateral flexion measured in cm : distance from fingertips to floor Hip Goniometric Range of Motion Hip Right Active Internal Rotation 65 External Rotation 8 Left Active Testing Position Sitting Internal Rotation 68 External Rotation 10 PT-OP-L Special Tests Start: 07/10/19 14:42 Freq: Status: Active Protocol: Document 07/10/19 13:45 DCW (Rec: 07/10/19 15:15 DCW [id number]) Special Tests Lumbar Spine Special Tests Straight Leg Raise Test Results Negative passive, positive active Standing Flexion Test Results Negative Slump Test Results Negative Passive Neck Flexion Test Results Negative Compression Test Results Negative Hip Special Tests Piriformis Test Results Significant tenderness and tone, no radicular symptoms ASIM Test Results Lateral hip pain due to limited ER bilaterally PT-OP-Q Treatments Start: 07/10/19 14:42 Freq: Status: Active Protocol: Document 08/06/19 09:45 AMB (Rec: 08/06/19 12:53 AMB [email or web address]) Therapeutic Exercises Supine Exercises TA activation Supine Exercise Name TA iso, with marches & bent knee fall outs Side bilateral Reps/Minutes 20 ea Comments pt able to engage TA and stabilize during LE movements 5 Supine Exercise Name iliopsoas stretch in azalea test position Comments reviewed from HEP Piriformis Stretch Supine Exercise Name Figure-4, Nkgk-sq-cmmdmjtl shoulder Side right Prone Exercises 1 Prone Exercise Name prone on elbows Reps/Minutes 5x10 Other Exercises 3 Other Exercise Name thread the needle Reps/Minutes 10 2 Other Exercise Name gabriella pose Reps/Minutes 30x2 1 Other Exercise Name cat cow Reps/Minutes 10 reps Manual Therapy Treatment Joint Mobilizations 1 Joint PA mobs thoracic spine in prone Comments added PAs to lumbar spine in prone on elbows GrII Manual Traction R LE Details long axis distraction Body Position Supine PT-OP-R Modalities Start: 07/10/19 14:42 Freq: Status: Active Protocol: Document 08/06/19 09:45 AMB (Rec: 08/06/19 12:53 AMB [email or web address]) Hot Pack/Cold Pack Treatment Hot Pack Location Back Patient Position Hooklying Treatment Duration (minutes) 10 Comments no e-stim, pt did not like e- stim PT-OP-T Assessment and Plan Start: 07/10/19 14:42 Freq: Status: Active Protocol: Document 08/06/19 09:45 AMB (Rec: 08/06/19 12:53 AMB [email or web address]) Physical Therapy Assessment Assessment Summary Assessment Pt continues to have lumbar and thoracic pain that limits his ability to work, but tolerated quadruped and prone exercises well, although is stiff with moving positions. Physical Therapy Plan Next Visit Focus/Plan Next Note Type Treatment Note Next Visit Plan review TA activation. STM, hip & thoracic moblizations and core strengthening, continued focus on lumbar spine in addition to thoracic.
--- NOTE | 2019-08-11 10:20 | PT.OTN ---
Current Diagnoses Low back pain (08/11/19) Physical Therapy Treatment Note PT-OP-A Visit Information Start: 07/10/19 14:42 Freq: Status: Active Protocol: Document 08/11/19 10:12 GGD (Rec: 08/11/19 10:20 GGD [email or web address]) Out-Patient Physical Therapy Visit Information Visit Information Visit Type Treatment Note Visit Start Time 08:15 Visit Stop Time 09:05 Total Visit Minutes 50 Visit Number 6 Number of LAND SURVEYOR MANAGER Visits 1 Evaluation Information Evaluation Date 07/10/19 PT-OP-B Current Condition Start: 07/10/19 14:42 Freq: Status: Active Protocol: Document 07/10/19 13:45 DCW (Rec: 07/10/19 15:15 DCW [id number]) Current Condition History of Current Condition Onset Date 6 month history Current Complaints thoracic pain, lumbar pain, radicular right leg pain History of Current Condition Pt is a 58 year old male presenting with a six month history of mid- and low-back pain. Pt reports there was no instigating injury, it just flared up unexpectedly one day . Pt notes that over the last six months, it has not really changed much, overall, but seems to get better and worse randomly. Pt admits that lifting seems to flare it up, but the pain never really goes away, so its hard to tell what all makes it feel worse or better. Pt reports that in the morning, it typically takes him more than an hour to move around enough to loosen up. 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 Pt also notes a life-long history of hip immobility, reporting that when he was in school, he would always W sit, as sitting cross-legged is painful for him, and he is still significantly limited with external rotation. Pt reports his pain initially began in his thoracic spine, and radiated out along his ribs. Over the past few months , his lumbar spine has also been worsening, and it often causes radicular pain down his right leg. Pt also always sits with his wallet in his back pocket, and notes that it causes enough pain that he sometimes needs to switch it to the other side. Future Testing and Treatments Planned Pt has referral for lumbar x- ray Prior Functional Status Baseline Function- ADL's Independent Baseline Function- Mobility Independent Current Functional Impairments (Reported) Functional Limitations- Work/School Pt only able to tolerate 16 hour work weeks Functional Limitations- Other Pt takes one hour after waking up to try and move around and loosen up enough to decrease his pain PT-OP-C Subjective Start: 07/10/19 14:42 Freq: Status: Active Protocol: Document 08/11/19 10:12 GGD (Rec: 08/11/19 10:20 GGD [email or web address]) OP-PT Subjective Patient Comments Patient Comments Pt states he feels better after stretching. He feels that he is recovering from two days of work faster, now two days of increase symptoms vs three. PT-OP-F Manual Assessment Start: 07/10/19 14:42 Freq: Status: Active Protocol: Document 07/10/19 13:45 DCW (Rec: 07/10/19 15:15 DCW [id number]) Manual Assessments Soft Tissue Assessment Soft Tissue Mobility Assessment Moderate-severe tone: thoracic paraspinals, lumbar paraspinals, right piriformis, right QL Joint Mobility Assessment Joint Mobility Assessment Rib 8 raised bilaterally, L>R. Rib 10 raised L Moderate pain with P->A mobilization of T8-10, L3-L5 PT-OP-K Range of Motion Start: 07/10/19 14:42 Freq: Status: Active Protocol: Document 07/10/19 13:45 DCW (Rec: 07/10/19 15:15 DCW [id number]) Lumbar Spine Range of Motion Lumbar Spine Active Degrees Testing Position Standing Flexion 45 Extension 15 Lateral Flexion Left 58 Lateral Flexion Right 60 Comments Lateral flexion measured in cm : distance from fingertips to floor Hip Goniometric Range of Motion Hip Right Active Internal Rotation 65 External Rotation 8 Left Active Testing Position Sitting Internal Rotation 68 External Rotation 10 PT-OP-L Special Tests Start: 07/10/19 14:42 Freq: Status: Active Protocol: Document 07/10/19 13:45 DCW (Rec: 07/10/19 15:15 DCW [id number]) Special Tests Lumbar Spine Special Tests Straight Leg Raise Test Results Negative passive, positive active Standing Flexion Test Results Negative Slump Test Results Negative Passive Neck Flexion Test Results Negative Compression Test Results Negative Hip Special Tests Piriformis Test Results Significant tenderness and tone, no radicular symptoms ASIM Test Results Lateral hip pain due to limited ER bilaterally PT-OP-Q Treatments Start: 07/10/19 14:42 Freq: Status: Active Protocol: Document 08/11/19 10:12 GGD (Rec: 08/11/19 10:20 GGD [email or web address]) Therapeutic Exercises Supine Exercises TA activation Supine Exercise Name TA iso, with marches & bent knee fall outs Side bilateral Reps/Minutes 20 ea 5 Supine Exercise Name iliopsoas stretch in azalea test position Comments reviewed from HEP Piriformis Stretch Supine Exercise Name Figure-4, Acxe-wm-dnsjumjl shoulder Side right Prone Exercises 1 Prone Exercise Name prone on elbows Reps/Minutes 5x10 Other Exercises 2 Other Exercise Name gabriella pose Reps/Minutes 30x2 1 Other Exercise Name cat cow Reps/Minutes 10 reps Manual Therapy Treatment Soft Tissue Mobilization T/S and L/S paraspinals. Body Location T/s and L/S paraspinals Mobilization Type Myofascial Release,Rolling Intensity/Depth Moderate Body Position Prone Joint Mobilizations 1 Joint PA mobs thoracic spine in prone Comments added PAs to lumbar spine in prone on elbows GrII Manual Traction R LE Details long axis distraction Body Position Supine PT-OP-R Modalities Start: 07/10/19 14:42 Freq: Status: Active Protocol: Document 08/11/19 10:12 GGD (Rec: 08/11/19 10:20 GGD [email or web address]) Hot Pack/Cold Pack Treatment Hot Pack Location Back Patient Position Hooklying Treatment Duration (minutes) 10 Comments no e-stim, pt did not like e- stim PT-OP-T Assessment and Plan Start: 07/10/19 14:42 Freq: Status: Active Protocol: Document 08/11/19 10:12 GGD (Rec: 08/11/19 10:20 GGD [email or web address]) Physical Therapy Assessment Goals Four Impairment Pt wallet in back pocket causes increased pain in posterior hips and low ba Short Term Goal (STG) Pt to completely stop placing wallet in back pocket STG Duration 07/24/19 Three Impairment Severely limited hip external rotation Cash Posting Representative Goal (LTG) Hip ER bilaterally to >20? LTG Duration 09/09/19 Two Impairment Pt only able to tolerate a 16 hour work week due to back pain Jail Goal (LTG) Pt to return to full 40 hour work week with pain at no worst than 4/10 LTG Duration 09/09/19 One Impairment Pt does not have an appropriate home exercise program Short Term Goal (STG) Pt to be independent and compliant with an appropraite HEP STG Duration 08/10/19 Assessment Summary Assessment Pt had decrease C/O pain with long axis distraction. He needed cues for core stability with exercises. Physical Therapy Plan Frequency and Duration Frequency of Treatment 2x/Week Duration of Treatment 2 months Plan of Care Start Date 07/10/19 Plan of Care End Date 09/09/19 Next Visit Focus/Plan Next Note Type Treatment Note Next Visit Plan Mechanical l/S traction.
--- NOTE | 2019-08-13 16:05 | PT.OTN ---
Current Diagnoses Low back pain (08/13/19) Physical Therapy Treatment Note PT-OP-A Visit Information Start: 07/10/19 14:42 Freq: Status: Active Protocol: Document 08/13/19 16:05 DLM (Rec: 08/13/19 17:09 DLM [id number]) Out-Patient Physical Therapy Visit Information Visit Information Visit Type Treatment Note Visit Start Time 16:05 Visit Stop Time 16:55 Total Visit Minutes 50 Visit Number 7 Number of PHOTO MASK PATTERN GENERATOR Visits 0 Evaluation Information Evaluation Date 07/10/19 PT-OP-B Current Condition Start: 07/10/19 14:42 Freq: Status: Active Protocol: Document 07/10/19 13:45 DCW (Rec: 07/10/19 15:15 DCW [id number]) Current Condition History of Current Condition Onset Date 6 month history Current Complaints thoracic pain, lumbar pain, radicular right leg pain History of Current Condition Pt is a 58 year old male presenting with a six month history of mid- and low-back pain. Pt reports there was no instigating injury, it just flared up unexpectedly one day . Pt notes that over the last six months, it has not really changed much, overall, but seems to get better and worse randomly. Pt admits that lifting seems to flare it up, but the pain never really goes away, so its hard to tell what all makes it feel worse or better. Pt reports that in the morning, it typically takes him more than an hour to move around enough to loosen up. 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 Pt also notes a life-long history of hip immobility, reporting that when he was in school, he would always W sit, as sitting cross-legged is painful for him, and he is still significantly limited with external rotation. Pt reports his pain initially began in his thoracic spine, and radiated out along his ribs. Over the past few months , his lumbar spine has also been worsening, and it often causes radicular pain down his right leg. Pt also always sits with his wallet in his back pocket, and notes that it causes enough pain that he sometimes needs to switch it to the other side. Future Testing and Treatments Planned Pt has referral for lumbar x- ray Prior Functional Status Baseline Function- ADL's Independent Baseline Function- Mobility Independent Current Functional Impairments (Reported) Functional Limitations- Work/School Pt only able to tolerate 16 hour work weeks Functional Limitations- Other Pt takes one hour after waking up to try and move around and loosen up enough to decrease his pain PT-OP-C Subjective Start: 07/10/19 14:42 Freq: Status: Active Protocol: Document 08/13/19 16:05 DLM (Rec: 08/13/19 17:09 DLM [id number]) OP-PT Subjective Patient Comments Patient Comments He started on Prednisone and he already feels a lot better. He reports his pain had been up to 8/10 and now it is 2/10. He has been having hot spells on and off and is not sure why. The hot spells started before taking the Prednisone. Patient Reported Progress Improving PT-OP-F Manual Assessment Start: 07/10/19 14:42 Freq: Status: Active Protocol: Document 07/10/19 13:45 DCW (Rec: 07/10/19 15:15 DCW [id number]) Manual Assessments Soft Tissue Assessment Soft Tissue Mobility Assessment Moderate-severe tone: thoracic paraspinals, lumbar paraspinals, right piriformis, right QL Joint Mobility Assessment Joint Mobility Assessment Rib 8 raised bilaterally, L>R. Rib 10 raised L Moderate pain with P->A mobilization of T8-10, L3-L5 PT-OP-K Range of Motion Start: 07/10/19 14:42 Freq: Status: Active Protocol: Document 07/10/19 13:45 DCW (Rec: 07/10/19 15:15 DCW [id number]) Lumbar Spine Range of Motion Lumbar Spine Active Degrees Testing Position Standing Flexion 45 Extension 15 Lateral Flexion Left 58 Lateral Flexion Right 60 Comments Lateral flexion measured in cm : distance from fingertips to floor Hip Goniometric Range of Motion Hip Right Active Internal Rotation 65 External Rotation 8 Left Active Testing Position Sitting Internal Rotation 68 External Rotation 10 PT-OP-L Special Tests Start: 07/10/19 14:42 Freq: Status: Active Protocol: Document 07/10/19 13:45 DCW (Rec: 07/10/19 15:15 DCW [id number]) Special Tests Lumbar Spine Special Tests Straight Leg Raise Test Results Negative passive, positive active Standing Flexion Test Results Negative Slump Test Results Negative Passive Neck Flexion Test Results Negative Compression Test Results Negative Hip Special Tests Piriformis Test Results Significant tenderness and tone, no radicular symptoms ASIM Test Results Lateral hip pain due to limited ER bilaterally PT-OP-Q Treatments Start: 07/10/19 14:42 Freq: Status: Active Protocol: Document 08/13/19 16:05 DLM (Rec: 08/13/19 17:09 DLM [id number]) Therapeutic Exercises Supine Exercises 5 Supine Exercise Name iliopsoas stretch in Earnest test position Comments x 2 reps each side 4 Supine Exercise Name single knee to chest Reps/Minutes x2 reps each side Piriformis Stretch Supine Exercise Name Figure-4, Xtdq-vk-xfsejekv shoulder Side bilateral Reps/Minutes x 2 reps each side Prone Exercises 1 Prone Exercise Name prone on elbows Reps/Minutes x 2 reps Other Exercises 3 Other Exercise Name thread the needle Reps/Minutes 10 2 Other Exercise Name gabriella pose Reps/Minutes 30x2 1 Other Exercise Name cat cow Reps/Minutes 10 reps PT-OP-R Modalities Start: 07/10/19 14:42 Freq: Status: Active Protocol: Document 08/11/19 10:12 GGD (Rec: 08/11/19 10:20 GGD [email or web address]) Hot Pack/Cold Pack Treatment Hot Pack Location Back Patient Position Hooklying Treatment Duration (minutes) 10 Comments no e-stim, pt did not like e- stim PT-OP-T Assessment and Plan Start: 07/10/19 14:42 Freq: Status: Active Protocol: Document 08/13/19 16:05 DLM (Rec: 08/13/19 17:09 DLM [id number]) Physical Therapy Assessment Goals Four Impairment Pt wallet in back pocket causes increased pain in posterior hips and low ba Short Term Goal (STG) Pt to completely stop placing wallet in back pocket STG Duration 07/24/19 Three Impairment Severely limited hip external rotation Neuropathologist Goal (LTG) Hip ER bilaterally to >20? LTG Duration 09/09/19 Two Impairment Pt only able to tolerate a 16 hour work week due to back pain Neuropathologist Goal (LTG) Pt to return to full 40 hour work week with pain at no worst than 4/10 LTG Duration 09/09/19 One Impairment Pt does not have an appropriate home exercise program Short Term Goal (STG) Pt to be independent and compliant with an appropraite HEP STG Duration 08/10/19 Progress Towards Goals Progress Towards Goals Progressing Toward Goals Assessment Summary Assessment Held the start of lumbar traction today due to his dramatic decrease in pain with the start of Prednisone. He tolerated his exercises well with reports of less pain over -all. Cautioned pt to progress his activities gradually to avoid over-doing and flaring pain. He reports no LE radicular pain at this time. He needed verbal cues today to avoid holding his stretches too long. Physical Therapy Plan Frequency and Duration Frequency of Treatment 2x/Week Duration of Treatment 2 months Plan of Care Start Date 07/10/19 Plan of Care End Date 09/09/19 Therapeutic Interventions Therapeutic Interventions Aquatic Therapy,Home Exercise Program,Joint Mobilizations, Manual Therapy,Neuromuscular Re-education,Patient/Caregiver Education,Self-Care/Home Management,Soft Tissue Mobilization,Therapeutic Exercises Modalities Cold Pack/Ice Massage,Electric Stimulation,Hot Packs, Traction- Mechanical, Ultrasound Next Visit Focus/Plan Next Note Type Treatment Note Next Visit Plan monitor response to taking Prednisone, focus on stretching and core stab
--- NOTE | 2019-08-19 16:40 | PT.OTN ---
Current Diagnoses Low back pain (08/19/19) Physical Therapy Treatment Note PT-OP-A Visit Information Start: 07/10/19 14:42 Freq: Status: Active Protocol: Document 08/19/19 16:30 GGD (Rec: 08/19/19 16:40 GGD [email or web address]) Out-Patient Physical Therapy Visit Information Visit Information Visit Type Treatment Note Visit Start Time 13:45 Visit Stop Time 14:25 Total Visit Minutes 40 Visit Number 8 Number of PRINTING PLATE SETTER Visits 1 Evaluation Information Evaluation Date 07/10/19 PT-OP-B Current Condition Start: 07/10/19 14:42 Freq: Status: Active Protocol: Document 07/10/19 13:45 DCW (Rec: 07/10/19 15:15 DCW [id number]) Current Condition History of Current Condition Onset Date 6 month history Current Complaints thoracic pain, lumbar pain, radicular right leg pain History of Current Condition Pt is a 58 year old male presenting with a six month history of mid- and low-back pain. Pt reports there was no instigating injury, it just flared up unexpectedly one day . Pt notes that over the last six months, it has not really changed much, overall, but seems to get better and worse randomly. Pt admits that lifting seems to flare it up, but the pain never really goes away, so its hard to tell what all makes it feel worse or better. Pt reports that in the morning, it typically takes him more than an hour to move around enough to loosen up. 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 Pt also notes a life-long history of hip immobility, reporting that when he was in school, he would always W sit, as sitting cross-legged is painful for him, and he is still significantly limited with external rotation. Pt reports his pain initially began in his thoracic spine, and radiated out along his ribs. Over the past few months , his lumbar spine has also been worsening, and it often causes radicular pain down his right leg. Pt also always sits with his wallet in his back pocket, and notes that it causes enough pain that he sometimes needs to switch it to the other side. Future Testing and Treatments Planned Pt has referral for lumbar x- ray Prior Functional Status Baseline Function- ADL's Independent Baseline Function- Mobility Independent Current Functional Impairments (Reported) Functional Limitations- Work/School Pt only able to tolerate 16 hour work weeks Functional Limitations- Other Pt takes one hour after waking up to try and move around and loosen up enough to decrease his pain PT-OP-C Subjective Start: 07/10/19 14:42 Freq: Status: Active Protocol: Document 08/19/19 16:30 GGD (Rec: 08/19/19 16:40 GGD [email or web address]) OP-PT Subjective Patient Comments Patient Comments Pt states that prednisone helps for about 12 hours and then he feels that he needs to take more. He states he is still having hot spells at times. PT-OP-F Manual Assessment Start: 07/10/19 14:42 Freq: Status: Active Protocol: Document 07/10/19 13:45 DCW (Rec: 07/10/19 15:15 DCW [id number]) Manual Assessments Soft Tissue Assessment Soft Tissue Mobility Assessment Moderate-severe tone: thoracic paraspinals, lumbar paraspinals, right piriformis, right QL Joint Mobility Assessment Joint Mobility Assessment Rib 8 raised bilaterally, L>R. Rib 10 raised L Moderate pain with P->A mobilization of T8-10, L3-L5 PT-OP-K Range of Motion Start: 07/10/19 14:42 Freq: Status: Active Protocol: Document 07/10/19 13:45 DCW (Rec: 07/10/19 15:15 DCW [id number]) Lumbar Spine Range of Motion Lumbar Spine Active Degrees Testing Position Standing Flexion 45 Extension 15 Lateral Flexion Left 58 Lateral Flexion Right 60 Comments Lateral flexion measured in cm : distance from fingertips to floor Hip Goniometric Range of Motion Hip Right Active Internal Rotation 65 External Rotation 8 Left Active Testing Position Sitting Internal Rotation 68 External Rotation 10 PT-OP-L Special Tests Start: 07/10/19 14:42 Freq: Status: Active Protocol: Document 07/10/19 13:45 DCW (Rec: 07/10/19 15:15 DCW [id number]) Special Tests Lumbar Spine Special Tests Straight Leg Raise Test Results Negative passive, positive active Standing Flexion Test Results Negative Slump Test Results Negative Passive Neck Flexion Test Results Negative Compression Test Results Negative Hip Special Tests Piriformis Test Results Significant tenderness and tone, no radicular symptoms ASIM Test Results Lateral hip pain due to limited ER bilaterally PT-OP-Q Treatments Start: 07/10/19 14:42 Freq: Status: Active Protocol: Document 08/19/19 16:30 GGD (Rec: 08/19/19 16:40 GGD [email or web address]) Therapeutic Exercises Supine Exercises LTR Supine Exercise Name LTR Side bilateral Reps/Minutes 15x Comments cues for ROM. 5 Supine Exercise Name iliopsoas stretch in azalea test position Comments reviewed from HEP 4 Supine Exercise Name single knee to chest Reps/Minutes x2 reps each side Piriformis Stretch Supine Exercise Name Figure-4, Nywe-wj-lecxcaqw shoulder Side bilateral Reps/Minutes x 2 reps each side Prone Exercises 1 Prone Exercise Name prone on elbows Reps/Minutes x 2 reps Sidelying Exercises roll and reach Sidelying Exercise Name roll and reach Side bilateral Reps/Minutes 5X each side Other Exercises 2 Other Exercise Name gabriella pose Reps/Minutes 30x2 1 Other Exercise Name cat cow Reps/Minutes 10 reps PT-OP-R Modalities Start: 07/10/19 14:42 Freq: Status: Active Protocol: Document 08/11/19 10:12 GGD (Rec: 08/11/19 10:20 GGD [email or web address]) Hot Pack/Cold Pack Treatment Hot Pack Location Back Patient Position Hooklying Treatment Duration (minutes) 10 Comments no e-stim, pt did not like e- stim PT-OP-T Assessment and Plan Start: 07/10/19 14:42 Freq: Status: Active Protocol: Document 08/19/19 16:30 GGD (Rec: 08/19/19 16:40 GGD [email or web address]) Physical Therapy Assessment Goals Four Impairment Pt wallet in back pocket causes increased pain in posterior hips and low ba Short Term Goal (STG) Pt to completely stop placing wallet in back pocket STG Duration 07/24/19 Three Impairment Severely limited hip external rotation Assisted Goal (LTG) Hip ER bilaterally to >20? LTG Duration 09/09/19 Two Impairment Pt only able to tolerate a 16 hour work week due to back pain Assisted Goal (LTG) Pt to return to full 40 hour work week with pain at no worst than 4/10 LTG Duration 09/09/19 One Impairment Pt does not have an appropriate home exercise program Short Term Goal (STG) Pt to be independent and compliant with an appropraite HEP STG Duration 08/10/19 Assessment Summary Assessment Pt able to progress light rom and flexibility exercise. He reports decrease in pain, but limit tolerance to standing, home and work activities. Physical Therapy Plan Frequency and Duration Frequency of Treatment 2x/Week Duration of Treatment 2 months Plan of Care Start Date 07/10/19 Plan of Care End Date 09/09/19 Therapeutic Interventions Therapeutic Interventions Aquatic Therapy,Home Exercise Program,Joint Mobilizations, Manual Therapy,Neuromuscular Re-education,Patient/Caregiver Education,Self-Care/Home Management,Soft Tissue Mobilization,Therapeutic Exercises Modalities Cold Pack/Ice Massage,Electric Stimulation,Hot Packs, Traction- Mechanical, Ultrasound Next Visit Focus/Plan Next Note Type Treatment Note Next Visit Plan monitor response to taking Prednisone, focus on stretching and core stab
--- NOTE | 2019-12-01 10:06 | PT.OPDS ---
Current Diagnoses Low back pain (08/19/19) Visit Care Team Role Provider Type Amy Espinoza MD Attending Provider Physician Primary Care Provider Specialty: Internal Medicine Address: [address] [place] [address], [id number] Email: Visit Number Visit Number 8 Discharge Summary PT-OP-B Current Condition Start: 07/10/19 14:42 Freq: Status: Active Protocol: Document 07/10/19 13:45 DCW (Rec: 07/10/19 15:15 DCW [id number]) Current Condition History of Current Condition Onset Date 6 month history Current Complaints thoracic pain, lumbar pain, radicular right leg pain History of Current Condition Pt is a 58 year old male presenting with a six month history of mid- and low-back pain. Pt reports there was no instigating injury, it just flared up unexpectedly one day . Pt notes that over the last six months, it has not really changed much, overall, but seems to get better and worse randomly. Pt admits that lifting seems to flare it up, but the pain never really goes away, so its hard to tell what all makes it feel worse or better. Pt reports that in the morning, it typically takes him more than an hour to move around enough to loosen up. 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 Pt also notes a life-long history of hip immobility, reporting that when he was in school, he would always W sit, as sitting cross-legged is painful for him, and he is still significantly limited with external rotation. Pt reports his pain initially began in his thoracic spine, and radiated out along his ribs. Over the past few months , his lumbar spine has also been worsening, and it often causes radicular pain down his right leg. Pt also always sits with his wallet in his back pocket, and notes that it causes enough pain that he sometimes needs to switch it to the other side. Future Testing and Treatments Planned Pt has referral for lumbar x- ray Prior Functional Status Baseline Function- ADL's Independent Baseline Function- Mobility Independent Current Functional Impairments (Reported) Functional Limitations- Work/School Pt only able to tolerate 16 hour work weeks Functional Limitations- Other Pt takes one hour after waking up to try and move around and loosen up enough to decrease his pain PT-OP-C Subjective Start: 07/10/19 14:42 Freq: Status: Active Protocol: Document 08/19/19 16:30 GGD (Rec: 08/19/19 16:40 GGD [id number]) OP-PT Subjective Patient Comments Patient Comments Pt states that prednisone helps for about 12 hours and then he feels that he needs to take more. He states he is still having hot spells at times. PT-OP-F Manual Assessment Start: 07/10/19 14:42 Freq: Status: Active Protocol: Document 07/10/19 13:45 DCW (Rec: 07/10/19 15:15 DCW [id number]) Manual Assessments Soft Tissue Assessment Soft Tissue Mobility Assessment Moderate-severe tone: thoracic paraspinals, lumbar paraspinals, right piriformis, right QL Joint Mobility Assessment Joint Mobility Assessment Rib 8 raised bilaterally, L>R. Rib 10 raised L Moderate pain with P->A mobilization of T8-10, L3-L5 PT-OP-K Range of Motion Start: 07/10/19 14:42 Freq: Status: Active Protocol: Document 07/10/19 13:45 DCW (Rec: 07/10/19 15:15 DCW [id number]) Lumbar Spine Range of Motion Lumbar Spine Active Degrees Testing Position Standing Flexion 45 Extension 15 Lateral Flexion Left 58 Lateral Flexion Right 60 Comments Lateral flexion measured in cm : distance from fingertips to floor Hip Goniometric Range of Motion Hip Right Active Internal Rotation 65 External Rotation 8 Left Active Testing Position Sitting Internal Rotation 68 External Rotation 10 PT-OP-L Special Tests Start: 07/10/19 14:42 Freq: Status: Active Protocol: Document 07/10/19 13:45 DCW (Rec: 07/10/19 15:15 DCW [id number]) Special Tests Lumbar Spine Special Tests Straight Leg Raise Test Results Negative passive, positive active Standing Flexion Test Results Negative Slump Test Results Negative Passive Neck Flexion Test Results Negative Compression Test Results Negative Hip Special Tests Piriformis Test Results Significant tenderness and tone, no radicular symptoms ASIM Test Results Lateral hip pain due to limited ER bilaterally PT-OP-T Assessment and Plan Start: 07/10/19 14:42 Freq: Status: Active Protocol: Document 12/01/19 10:04 ANTONIO (Rec: 12/01/19 10:06 DCW [id number]) Physical Therapy Assessment Goals Four Impairment Pt wallet in back pocket causes increased pain in posterior hips and low ba Short Term Goal (STG) Pt to completely stop placing wallet in back pocket STG Duration 07/24/19 Three Impairment Severely limited hip external rotation Email Production Consultant Goal (LTG) Hip ER bilaterally to >20? LTG Duration 09/09/19 Two Impairment Pt only able to tolerate a 16 hour work week due to back pain Email Production Consultant Goal (LTG) Pt to return to full 40 hour work week with pain at no worst than 4/10 LTG Duration 09/09/19 One Impairment Pt does not have an appropriate home exercise program Short Term Goal (STG) Pt to be independent and compliant with an appropraite HEP STG Duration 08/10/19 Assessment Summary Assessment Pt has not been seen in more than three months, and has no upcoming appointments scheduled. Pt will be discharged at this time, and will require a new referral in order to return to therapy. Physical Therapy Plan Frequency and Duration Frequency of Treatment 2x/Week Duration of Treatment 2 months Plan of Care Start Date 07/10/19 Plan of Care End Date 09/09/19 Therapeutic Interventions Therapeutic Interventions Aquatic Therapy,Home Exercise Program,Joint Mobilizations, Manual Therapy,Neuromuscular Re-education,Patient/Caregiver Education,Self-Care/Home Management,Soft Tissue Mobilization,Therapeutic Exercises Modalities Cold Pack/Ice Massage,Electric Stimulation,Hot Packs, Traction- Mechanical, Ultrasound Discharge Physical Therapy Discharge Reasons No Longer Attending PT Next Visit Focus/Plan Next Note Type Discharge Summary
== END 2019-08-20 12:40 ==
LOC: PHYS 13:45
PROVIDERS: PCP Hospitalist; Visit Provider Hospitalist
DX: M54.5 Low back pain (principal)
CPT/HCPCS: 97010; 97014; 97110; 97140; 97162; 97530; G0283

== ENCOUNTER → 2019-08-19 14:28 | Outpatient (CLI) | payer OTHER, MEDICAID, SELFPAY ==
[2019-08-19 15:03] LABS: Creatine Kinase 22 U/L (55-170)
== END ==
PROVIDERS: PCP Hospitalist; Visit Provider Hospitalist
DX: M79.10 Myalgia, unspecified site (principal)
CPT/HCPCS: 36415; 82550

== ENCOUNTER → 2019-08-28 09:51 | Outpatient (CLI) | payer OTHER, MEDICAID, SELFPAY ==
[2019-08-28 10:41] LABS: Add Manual Diff / Slide Review NO; Basophils Absolute Auto 100 /uL (0-100); Basophils Percent Auto 0.5 % (0-2); Eosinophils Absolute Auto 500 /uL (0-450); Eosinophils Percent Auto 4.1 % (2-4); Hematocrit 40.2 % (41-53); Lymphocytes Absolute Auto 1200 /uL (1100-4500); Mean Corpuscular HGB Conc 32.4 % (30-36); Mean Corpuscular Hemoglobin 27.7 PG (26-34); Mean Corpuscular Volume 85.5 fL (80-100); Monocytes Absolute Auto 700 /uL (0-900); Monocytes Percent Auto 5.6 % (3-14); Neutrophils Absolute Auto 10600 /uL (1500-7000); Neutrophils Percent Auto 80.8 % (50-75); Platelet Count 285 X10^3/uL (150-400); Red Cell Distribution Width 14.6 % (11.6-14.8); White Blood Cell Count 13.1 X10^3/uL (4.5-11.0)
[2019-08-28 10:54] LABS: Erythrocyte Sedimentation Rate 18 MM/HR (0-15)
[2019-08-28 11:30] LABS: Cholesterol 196 mg/dL (140-199); HDL Cholesterol 52 mg/dL (40-60); LDL Cholesterol Calculated 121 mg/dL (<100); Triglycerides 113 mg/dL (35-150)
== END ==
PROVIDERS: PCP Hospitalist; Visit Provider Hospitalist
DX: R68.83 Chills (without fever) (principal); M35.3 Polymyalgia rheumatica; E78.5 Hyperlipidemia, unspecified
CPT/HCPCS: 36415; 80061; 85025; 85651

== ENCOUNTER → 2019-09-04 13:43 | Outpatient (CLI) | payer OTHER, MEDICAID, SELFPAY ==
--- NOTE | 2019-09-04 14:11 | DI.MRI.S_ITS ---
PROCEDURE: MR LUMBAR SPINE WO CON INDICATIONS: ongoing low back pain TECHNIQUE: Noncontrast sagittal T1 spin echo and T2 fast echo, sagittal STIR, axial T1 and T2 fast spin echo through the lumbar spine. In cases with scoliosis, additional coronal T2 fast spin echo may be performed. COMPARISON: [facility], CR, XR LUMBAR SPINE 2-3V, 07/13/2019, 13:17. FINDINGS: Image quality: Excellent. Alignment and Curvature: Minimal dextroconvex scoliotic curvature is seen. No focal AP alignment abnormality is seen. Bone Marrow: Marrow is of normal overall signal. No acute vertebral body compression fractures. Spinal Cord: Conus medullaris terminates at the L1 level. Visualized cord demonstrates normal signal and size. Paraspinous Soft Tissues: No paravertebral masses. T12-L1: Normal appearance. L1-L2: Normal appearance. L2-L3: Normal appearance. L3-L4: Normal appearance. L4-L5: The disc height and disk signal are well-preserved. Mild generalized disc bulge is seen. Mild bilateral neural foraminal narrowing is seen, left greater than right. The central canal is widely patent. L5-S1: Moderate loss of disc height is seen. Loss of disc signal is seen. Xizl-ox-qjcpruaq disc bulge is seen. There is a central disc protrusion seen, with an associated annular fissure, as on series 6 image 10. Rqer-ex-llstifqt facet hypertrophy is seen. There is moderate right-sided and mild to moderate left-sided neural foraminal narrowing seen. Minimal to mild central canal narrowing is seen. IMPRESSION: Focal L5-S1 degenerative change, with a central disc protrusion with an associated annular fissure. Dictated by: Jayden Anderson M.D. on 09/04/2019 at 15:52 Approved by: Jayden Anderson M.D. on 09/04/2019 at 15:55
== END ==
PROVIDERS: PCP Hospitalist; Visit Provider Hospitalist
DX: M47.817 Spondylosis without myelopathy or radiculopathy, lumbosacral region (principal); M51.27 Other intervertebral disc displacement, lumbosacral region
CPT/HCPCS: 72148

== ENCOUNTER → 2019-12-08 13:52 | Outpatient (CLI) | payer OTHER, MEDICAID, SELFPAY ==
[2019-12-08 15:07] LABS: Add Manual Diff / Slide Review NO; Basophils Absolute Auto 100 /uL (0-100); Eosinophils Absolute Auto 200 /uL (0-450); Eosinophils Percent Auto 2.3 % (2-4); Hematocrit 36.1 % (41-53); Hemoglobin 11.9 g/dL (13.5-17.5); Lymphocytes Absolute Auto 400 /uL (1100-4500); Mean Corpuscular Hemoglobin 26.6 PG (26-34); Mean Corpuscular Volume 80.7 fL (80-100); Monocytes Absolute Auto 600 /uL (0-900); Monocytes Percent Auto 6.8 % (3-14); Neutrophils Absolute Auto 7900 /uL (1500-7000); Neutrophils Percent Auto 85.9 % (50-75); Platelet Count 212 X10^3/uL (150-400); Red Blood Cell Count 4.48 X10^6/uL (4.5-5.9); Red Cell Distribution Width 18.2 % (11.6-14.8); White Blood Cell Count 9.2 X10^3/uL (4.5-11.0)
[2019-12-08 15:37] LABS: Alanine Aminotransferase 13 IU/L (<50); Albumin 3.2 g/dL (3.5-5.0); Albumin Globulin Ratio 1.2 (1.0-2.8); Alkaline Phosphatase 88 U/L (38-126); Aspartate Aminotransferase 12 IU/L (17-59); BUN Creatinine Ratio 11.3 (6-22); Bilirubin Total 0.5 mg/dL (0.2-1.3); Blood Urea Nitrogen 52 mg/dL (9-20); Calcium 9.5 mg/dL (8.4-10.2); Carbon Dioxide 18 mmol/L (22-32); Chloride 106 mmol/L (98-107); Cholesterol 269 mg/dL (140-199); Estimated Glomerular Filt Rate 13.1 mL/min (>60); Globulin 2.6 g/dL (1.7-4.1); Glucose 94 mg/dL (80-110); HDL Cholesterol 24 mg/dL (40-60); HEMOLYSIS < 15 (0-50); LDL Cholesterol Calculated 185 mg/dL (<100); Potassium 3.7 mmol/L (3.4-5.1); Sodium 139 mmol/L (137-145); Total Protein 5.8 g/dL (6.3-8.2); Triglycerides 300 mg/dL (35-150)
[2019-12-08 15:43] LABS: Creatinine Urine Random 83.9 mg/dL
[2019-12-08 16:05] LABS: Microalbumi Creatinin Ratio Ur 340.8 ug/mg CR (<30); Microalbumin Urine Random 28.6 mg/dL (0-1.6)
[2019-12-08 16:10] LABS: Hemoglobin A1C% w Est Avg Glu 6.2 % (4.0-6.0)
[2019-12-10 14:41] LABS: Aldolase 10.2 U/L (< 8.2)
== END ==
PROVIDERS: PCP Family Medicine; Visit Provider Family Medicine
DX: N19 Unspecified kidney failure (principal); N17.9 Acute kidney failure, unspecified; E78.00 Pure hypercholesterolemia, unspecified; R73.09 Other abnormal glucose
CPT/HCPCS: 36415; 80053; 80061; 82043; 82085; 82570; 83036; 85025

== ENCOUNTER → 2019-12-10 13:23 | Outpatient (CLI) | payer OTHER, MEDICAID, SELFPAY ==
--- NOTE | 2019-12-10 | DI.US.S_ITS ---
PROCEDURE: US RETROPERITONEAL COMP INDICATIONS: END STAGE RENAL DISEASE TECHNIQUE: Real-time scanning was performed of the kidneys and bladder, with image documentation. COMPARISON: US, ABDOMEN SONOGRAM LIMITED, 04/05/2006, 15:06. FINDINGS: Kidneys: Kidneys are normal in size. Right kidney measures 11.5 cm long; left kidney measures 12.1 cm long. Right renal cortical thickness is 1.4 cm; left renal cortical thickness is 1.9 cm. Renal cortical echotexture is normal. No hydronephrosis or nephrolithiasis. No suspicious solid mass lesions. Bladder: Pre-void bladder volume is 124 mL. Post-void residual is 64 mL. Pre-void images demonstrate no intraluminal masses or stones. On pre-void images, bilateral ureteral jets are noted with color Doppler interrogation. (Of note, ureteral jets may not be detectable in up to 25% of cases due to insufficient differences in specific gravity between ureteral and bladder urine). Miscellaneous: No free pelvic fluid. IMPRESSION: Normal sonographic appearance of the kidneys. Dictated by: Gibran LOPEZ Interpreted: Fidelia Gill MD on 12/10/2019 at 16:56 Approved by: Fidelia Gill M.D. on 12/10/2019 at 17:30
[2019-12-10 15:13] LABS: Phosphorous 4.1 mg/dL (2.3-3.7)
[2019-12-12 15:10] LABS: Parathyroid Hormone Int 3 pg/mL (14-64)
[2019-12-12 19:09] LABS: Myeloperoxidase Antibody <1.0 AI (<1.0)
[2019-12-16 16:12] LABS: Abnormal Protein Band 1 15 mg/dL (NONE DETECTED); Abnormal Protein Band 2 5 mg/dL (NONE DETECTED); Albumin 19 %; Protein/ Creatinine Ratio 2600 mg/g creat (22-128); Total Urine Protein 176 mg/dL (5-25); Urine Creatinine, Random 68 mg/dL (20-320)
[2019-12-16 17:25] LABS: Abnormal Protein Band 1 0.2 g/dL (NONE DETECTED); Albumin 3.2 g/dL (3.8-4.8); Alpha 1 Globulin 0.4 g/dL (0.2-0.3); Alpha 2 Globulin 0.8 g/dL (0.5-0.9); Beta 1 Globulin 0.2 g/dL (0.4-0.6); Gamma Globulin 0.7 g/dL (0.8-1.7); Protein, Total 5.6 g/dL (6.1-8.1)
== END ==
PROVIDERS: PCP Family Medicine; Visit Provider Internal Medicine Nephrology
DX: N18.6 End stage renal disease (principal); D47.2 Monoclonal gammopathy; M32.0 Drug-induced systemic lupus erythematosus; I77.6 Arteritis, unspecified; E83.30 Disorder of phosphorus metabolism, unspecified; N25.81 Secondary hyperparathyroidism of renal origin
CPT/HCPCS: 36415; 76770; 82784; 83520; 83970; 84100; 84155; 84156; 84165; 84166; 86021; 86334; 86335

== ENCOUNTER → 2019-12-14 16:26 | Outpatient (CLI) | payer OTHER, MEDICAID, SELFPAY ==
--- NOTE | 2019-12-14 | DI.RAD.S_ITS ---
PROCEDURE: XR CHEST 2V INDICATIONS: Shortness of breath TECHNIQUE: 2 views of the chest were acquired. COMPARISON: None. FINDINGS: Surgical changes and devices: None. Lungs and pleura: Lungs are clear, aside from lingular airspace opacity. No pleural effusions or pneumothorax. Mediastinum: Mediastinal contours are normal. Heart size is normal. Bones and chest wall: No suspicious bony abnormalities. Soft tissues appear unremarkable. IMPRESSION: Lingular atelectasis versus aspiration or pneumonia. Correlate clinically. Continued radiographic surveillance to resolution is recommended. Dictated by: Gibran Nuñez [facility] Interpreted: Rachid Nvooa MD on 12/14/2019 at 16:44 Approved by: Rachid Novoa M.D. on 12/14/2019 at 16:52
== END ==
PROVIDERS: PCP Family Medicine; Visit Provider Internal Medicine Nephrology
DX: R06.02 Shortness of breath (principal)
CPT/HCPCS: 71046

== ENCOUNTER → 2019-12-18 13:44 | Outpatient (CLI) | payer OTHER, MEDICAID, SELFPAY ==
--- NOTE | 2019-12-18 | DI.MRI.S_ITS ---
PROCEDURE: MR PELIS WO/W CON INDICATIONS: Myalgia, other site TECHNIQUE: Noncontrast coronal T1 spin echo and STIR, sagittal T1 spin echo with fat saturation and STIR, axial T1 spin echo and T2 fast spin echo with fat saturation. After the administration of contrast, axial/sagittal/coronal T1 spin echo with fat saturation through the pelvis. COMPARISON: [facility], CR, XR HIP 2 VIEWS BILATERAL, 12/01/2019, 12:19. [facility], US, US RETROPERITONEAL COMP, 12/10/2019, 14:17. [facility], CR, XR CHEST 2V, 12/14/2019, 16:25. FINDINGS: Image quality: Excellent. Bones: The visualized bone marrow demonstrates multifocal abnormal signal on all sequences. The overlying cortex appears intact over any of these sites however at the right iliac wing an osteolytic process appears to erode through the medial cortex and results in tumor infiltration with abnormal elevated fluid signal and contrast enhancement in the medial adjacent iliacus musculature. The cortical destruction can be seen as loss of the usual low signal intensity line along the medial iliac bone, coronal STIR imaging, series 4 image 22. Additionally, tumor infiltration involves much of the right femoral neck and intertrochanteric right femur medullary space without clearly visualized osteolytic cortical defect. There is a finding of several mildly enlarged and hyperenhancing nodes at the external iliac node chain on the right, seen on coronal imaging series 10 image 21 (fat-suppressed T1 imaging) and also on conventional T1 imaging (series 3 image 27). Additional osseous metastatic disease is seen at the left sacrum, in an area measuring up to 5.7 cm craniocaudad and extending almost to the midline measuring 4.9 cm with a maximal AP dimension of 5.5 cm. Soft tissues: No soft tissue masses are visualized except at the iliac fossa on the right contiguous with the marrow space abnormality seen involving the iliac bone discussed above. The scanned muscles demonstrate normal overall bulk and internal signal except at the iliacus muscle on the right. Subcutaneous tissues appear normal as well. No abnormal soft tissue enhancement. 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 There is osteolytic change involving the medial cortex of the right iliac bone with what appears to be direct tumor infiltration into the underlying iliacus musculature on the right, with loss of the normal cortical boundary between the iliac bone and the medial musculature. As noted above there is a cluster of abnormal lymph nodes involving the external iliac node chain on the right. By MR appearance there likely is access for CT-guided biopsy into the right iliac fossa area of tumor infiltration. Dictated by: Ector Rawls M.D. on 12/18/2019 at 16:59 Approved by: Ector Rawls M.D. on 12/18/2019 at 17:15
== END ==
PROVIDERS: PCP Family Medicine; Visit Provider Internal Medicine Rheumatology
DX: M79.18 Myalgia, other site (principal); C79.51 Secondary malignant neoplasm of bone; C80.1 Malignant (primary) neoplasm, unspecified
CPT/HCPCS: 72197; A9579

== ENCOUNTER → 2019-12-23 12:55 | Outpatient (CLI) | payer OTHER, MEDICAID, SELFPAY ==
[2019-12-23 13:51] LABS: Hematocrit 38.6 % (41-53); Hemoglobin 12.8 g/dL (13.5-17.5); Mean Corpuscular HGB Conc 33.2 % (30-36); Mean Corpuscular Hemoglobin 26.9 PG (26-34); Platelet Count 297 X10^3/uL (150-400); Red Blood Cell Count 4.76 X10^6/uL (4.5-5.9); Red Cell Distribution Width 17.1 % (11.6-14.8); White Blood Cell Count 8.4 X10^3/uL (4.5-11.0)
[2019-12-23 14:09] LABS: Alanine Aminotransferase 15 IU/L (<50); Albumin 3.4 g/dL (3.5-5.0); Albumin Globulin Ratio 1.2 (1.0-2.8); Alkaline Phosphatase 99 U/L (38-126); Aspartate Aminotransferase 15 IU/L (17-59); BUN Creatinine Ratio 10.4 (6-22); Bilirubin Total 0.6 mg/dL (0.2-1.3); Blood Urea Nitrogen 25 mg/dL (9-20); Calcium 10.3 mg/dL (8.4-10.2); Carbon Dioxide 27 mmol/L (22-32); Chloride 100 mmol/L (98-107); Estimated Glomerular Filt Rate 27.8 mL/min (>60); Globulin 2.9 g/dL (1.7-4.1); Glucose 111 mg/dL (80-110); HEMOLYSIS < 15 (0-50); Potassium 3.5 mmol/L (3.4-5.1); Sodium 137 mmol/L (137-145); Total Protein 6.3 g/dL (6.3-8.2)
--- NOTE | 2019-12-28 11:27 | ONC.MSW ---
Description: New Referral Navigation T/C Activity: Called pt to confirm that we have received and are working on his referral for scheduling. He states that he is available for anytime, that he's no longer working due to the recent cancer findings. He has had 2-MRI's (both in the EMR), and a work-up/biopsy at [facility] for potential kidney involvement. His primary referral here is for pelvis mass/bone mets, and is marked as urgent, per PCP. Forwarded to scheduling for urgent initial appt. time for this Wed., 12/30 at 10:00am, 9:40am check-in time. Notified Dr. Cheek/referring provider.
== END ==
PROVIDERS: PCP Family Medicine; Visit Provider Internal Medicine Nephrology
DX: D70.9 Neutropenia, unspecified (principal); D63.1 Anemia in chronic kidney disease; N05.9 Unspecified nephritic syndrome with unspecified morphologic changes
CPT/HCPCS: 36415; 80053; 85027

== ENCOUNTER → 2020-01-05 15:31 | Outpatient (CLI) | payer OTHER, MEDICAID, SELFPAY ==
[2020-01-05 16:09] LABS: Add Manual Diff / Slide Review NO; Basophils Absolute Auto 100 /uL (0-100); Basophils Percent Auto 0.9 % (0-2); Eosinophils Absolute Auto 100 /uL (0-450); Eosinophils Percent Auto 0.9 % (2-4); Hematocrit 40.3 % (41-53); Hemoglobin 13.2 g/dL (13.5-17.5); Lymphocytes Absolute Auto 300 /uL (1100-4500); Lymphocytes Percent Auto 4.1 % (25-40); Mean Corpuscular HGB Conc 32.8 % (30-36); Mean Corpuscular Hemoglobin 26.6 PG (26-34); Mean Corpuscular Volume 81.1 fL (80-100); Monocytes Absolute Auto 300 /uL (0-900); Monocytes Percent Auto 3.9 % (3-14); Neutrophils Absolute Auto 7100 /uL (1500-7000); Neutrophils Percent Auto 90.2 % (50-75); Platelet Count 262 X10^3/uL (150-400); Red Blood Cell Count 4.97 X10^6/uL (4.5-5.9); Red Cell Distribution Width 16.9 % (11.6-14.8); White Blood Cell Count 7.8 X10^3/uL (4.5-11.0)
[2020-01-05 16:21] LABS: Alanine Aminotransferase 16 IU/L (<50); Albumin 3.4 g/dL (3.5-5.0); Alkaline Phosphatase 108 U/L (38-126); Aspartate Aminotransferase 18 IU/L (17-59); BUN Creatinine Ratio 13.8 (6-22); Bilirubin Total 0.6 mg/dL (0.2-1.3); Blood Urea Nitrogen 29 mg/dL (9-20); Calcium 10.6 mg/dL (8.4-10.2); Carbon Dioxide 27 mmol/L (22-32); Chloride 99 mmol/L (98-107); Estimated Glomerular Filt Rate 32.4 mL/min (>60); Globulin 3.3 g/dL (1.7-4.1); Glucose 179 mg/dL (80-110); HEMOLYSIS < 15 (0-50); Potassium 3.8 mmol/L (3.4-5.1); Sodium 135 mmol/L (137-145); Total Protein 6.7 g/dL (6.3-8.2)
[2020-01-05 16:53] LABS: Carcinoembryonic Antigen < 0.3 ng/mL (0.1-3.0)
[2020-01-07 13:01] LABS: Free Kappa Light Chain 39.5 mg/L (3.3-19.4); Free Kappa/ Lambda Ratio 1.22 (0.26-1.65); Free Lambda 32.3 mg/L (5.7-26.3)
== END ==
PROVIDERS: PCP Family Medicine; Referring Provider Internal Medicine Hematology & Oncology; Visit Provider Internal Medicine Nephrology
DX: N05.9 Unspecified nephritic syndrome with unspecified morphologic changes (principal); M89.8X9 Other specified disorders of bone, unspecified site
CPT/HCPCS: 36415; 80053; 82378; 82784; 83883; 84155; 85025; 86334

== ENCOUNTER → 2020-01-06 13:40 | Outpatient (CLI) | payer OTHER, MEDICAID, SELFPAY ==
--- NOTE | 2020-01-06 13:41 | DI.CT.S_ITS ---
PROCEDURE: CT CHEST ABD PEL WO CON INDICATIONS: New malignacy? infiltrative mass in MRI pelvis. renal failur TECHNIQUE: After the administration of oral contrast, 5 mm thick sections acquired from the lung apices to the symphysis pubis. 5 mm thick coronal and sagittal reformats acquired, with additional 7 mm coronal MIP reformats through the lungs. For radiation dose reduction, the following was used: automated exposure control, adjustment of mA and/or kV according to patient size. COMPARISON: [facility], MR, MR LUMBAR SPINE WO CON, 09/04/2019, 13:54. [facility], MR, MR PELVIS WO/W CON, 12/18/2019, 13:52. FINDINGS: Image quality: Excellent. CHEST: Lungs and pleura: No acute pulmonary opacities. Mild nonspecific anterior lateral pulmonary fibrosis in the upper lung [place] bilaterally. No suspicious pulmonary nodules. No pleural effusions or pneumothorax. Central and peripheral airways are patent are normal in caliber. Mediastinum: Heart size is normal. Coronary artery calcifications, diffuse. Minimal pericardial effusion. No mediastinal adenopathy by CT size criteria. Thoracic aorta and central pulmonary arteries are normal in size. Esophagus is normal in caliber. No hiatal hernia. Chest wall: No axillary or supraclavicular adenopathy by size criteria. Thyroid gland is unremarkable. ABDOMEN: Solid organs: Liver is normal in size. Gallbladder is unremarkable. Pancreas is normal in contours. Spleen is normal in size. No adrenal nodules. Both kidneys are normal in size, without hydronephrosis or nephrolithiasis. Peritoneum and bowel: Small and large bowel loops are normal in caliber and wall thickness. No free fluid or air. Nodes and vessels: No retroperitoneal or mesenteric adenopathy by size criteria. Aorta and inferior vena cava are normal in size. Miscellaneous: No ventral hernias. PELVIS: Genitourinary: Bladder wall thickness is normal. Miscellaneous: Small bilateral inguinal hernias containing fat. Pathologic right inguinal/external iliac lymph node measuring 2.9 x 2.2 cm. Additional abnormal enlarged right inguinal lymph node measuring 1.1 x 2.1 cm. Bones: There is a ill-defined lytic permeative destructive lesion involving the right iliac wing with associated pathologic fracture and soft tissue mass involving the right iliacus muscle. There is subtle lucency involving the medial right iliac bone and left sacrum and medial left iliac bone. Subtle lucency present involving the anterior aspect of the right femoral neck. Question bone island, left lateral aspect of L4. IMPRESSION: 1. Infiltrative process involving multiple bony structures. 2. Findings include ill-defined lytic permeative destruction of the right iliac wing with associated mass in the right iliacus muscle, as well as subtle lesions involving the left sacrum, medial bilateral iliac bones, and right femoral neck. 3. There is malignant appearing adenopathy present in the right inguinal/distal external iliac region, based on size criteria. 4. Splenomegaly. 5. Mild upper lung field predominance pulmonary fibrosis. Comment: If the previous biopsy that was performed of the left sacrum is indeterminate, the right iliac wing could be biopsied alternatively, the larger of the 2 right inguinal lymph nodes could be biopsied instead. Dictated by: Coy Mazariegos M.D. on 01/06/2020 at 14:50 Approved by: Coy Mazariegos M.D. on 01/06/2020 at 15:21
== END ==
PROVIDERS: PCP Family Medicine; Referring Provider Internal Medicine Hematology & Oncology; Visit Provider Internal Medicine Hematology & Oncology
DX: M89.8X9 Other specified disorders of bone, unspecified site (principal); J84.10 Pulmonary fibrosis, unspecified; R59.0 Localized enlarged lymph nodes; K40.20 Bilateral inguinal hernia, without obstruction or gangrene, not specified as recurrent; I25.10 Atherosclerotic heart disease of native coronary artery without angina pectoris
CPT/HCPCS: 71250; 74176

== ENCOUNTER → 2020-01-13 14:07 | Outpatient (CLI) | payer OTHER, MEDICAID, SELFPAY ==
[2020-01-13 14:54] LABS: Add Manual Diff / Slide Review NO; Basophils Absolute Auto 0 /uL (0-100); Eosinophils Absolute Auto 0 /uL (0-450); Eosinophils Percent Auto 0.1 % (2-4); Hematocrit 36.9 % (41-53); Lymphocytes Absolute Auto 300 /uL (1100-4500); Lymphocytes Percent Auto 2.6 % (25-40); Mean Corpuscular HGB Conc 32.4 % (30-36); Mean Corpuscular Hemoglobin 26.7 PG (26-34); Mean Corpuscular Volume 82.4 fL (80-100); Monocytes Absolute Auto 200 /uL (0-900); Monocytes Percent Auto 2.4 % (3-14); Neutrophils Absolute Auto 9600 /uL (1500-7000); Neutrophils Percent Auto 94.9 % (50-75); Platelet Count 276 X10^3/uL (150-400); Red Blood Cell Count 4.48 X10^6/uL (4.5-5.9); Red Cell Distribution Width 17.1 % (11.6-14.8); White Blood Cell Count 10.1 X10^3/uL (4.5-11.0)
[2020-01-13 15:59] LABS: BUN Creatinine Ratio 25.8 (6-22); Blood Urea Nitrogen 31 mg/dL (9-20); Calcium 9.3 mg/dL (8.4-10.2); Carbon Dioxide 24 mmol/L (22-32); Chloride 105 mmol/L (98-107); Estimated Glomerular Filt Rate > 60.0 mL/min (>60); Glucose 254 mg/dL (80-110); HEMOLYSIS < 15 (0-50); Potassium 5.1 mmol/L (3.4-5.1); Sodium 136 mmol/L (137-145)
== END ==
PROVIDERS: PCP Family Medicine; Referring Provider Internal Medicine Nephrology; Visit Provider Internal Medicine Nephrology
DX: N05.9 Unspecified nephritic syndrome with unspecified morphologic changes (principal); D70.9 Neutropenia, unspecified
CPT/HCPCS: 36415; 80048; 85025

== ENCOUNTER 2020-01-22 13:19 | Emergency (ER) | payer OTHER, MEDICAID, SELFPAY ==
[2020-01-22 13:20] VITALS: BP 136/74; PULSE 87; RESP 20; TEMP 36.8; O2SAT 100; BMI 21.1
--- NOTE | 2020-01-22 13:29 | ED.SYNCOPE ---
HPI - Syncope General Chief Complaint: Syncope Stated Complaint: low blood pressure, sent by doctor Time Seen by Provider: 01/22/20 13:21 Source: patient Mode of arrival: Ambulatory Limitations: no limitations History of Present Illness HPI narrative: 59-year-old male former smoker with history of renal insufficiency and bone mass being worked up by Infectious Disease for possible tuberculosis infection presents with a chief complaint of a few days of lightheadedness and near-syncope in the mornings and today he actually had a syncopal episode 1st thing in the morning upon standing. He admits to a 60 lb unplanned weight loss over the past year and initial evaluation started with ongoing back pain for which imaging noted abnormal lesions which were thought to possibly be cancers. These lesions were biopsied and are now thought to be infectious in nature. He is followed by infectious disease at [facility] for this. Patient had episodes of renal failure with maximum creatinine of about 4 few months ago which was thought to be due to a high protein load secondary to this underlying infectious process. He had been on prednisone 60 mg daily until he recently started tapering down to a dose of 25 mg today. This taper has been over the past week. He started getting lightheaded when the taper was initiated. He denies any nausea or vomiting but states that he has a terrible appetite. He denies any chest pain or shortness of breath. He denies any blurred vision or focal neurologic findings such as numbness, tingling or weakness. He is asymptomatic now and states this has been the course and he tends to feel better after he takes his prednisone daily. MD complaint: loss of consciousness and felt faint Onset (ago): day(s) Prodromal symptoms: lightheaded Witnessed: no Context: standing up Injuries sustained associated with event: none Current symptoms: none History: previous syncopal episode Treatments prior to arrival: none Related Data Home Medications Medication Instructions Recorded Confirmed prednisone 25 mg PO DAILY 01/13/20 01/22/20 acetaminophen 325 mg PO PRN PRN 01/22/20 01/22/20 Allergies Allergy/AdvReac Type Severity Reaction Status Date / Time No Known Drug Allergies Allergy Verified 01/22/20 16:07 Review of Systems Constitutional Constitutional: Denies chills, Denies fatigue, Denies fever(s), Denies frequent falls, Denies lethargy and Denies weakness Eyes Eyes: Denies change in vision, Denies eye discharge, Denies irritation and Denies loss of vision ENT Ears, Nose, Mouth, and Throat: Denies change in voice, Denies dizziness, Denies neck pain, Denies sore throat and Denies throat swelling Cardiovascular Cardiovascular: Denies chest pain, Reports syncope, Denies irregular heart rhythm, Denies lightheadedness, Denies palpitations, Denies dyspnea, Denies dyspnea on exertion and Denies orthopnea Respiratory Respiratory: Denies cough, Denies dyspnea, Denies dyspnea on exertion and Denies wheezing Gastrointestinal Gastrointestinal: Denies abdominal pain, Denies change in bowel habits, Denies diarrhea, Denies nausea and Denies vomiting Genitourinary Genitourinary: Denies hematuria, Denies flank pain, Denies urinary incontinence and Denies urinary urgency Musculoskeletal Musculoskeletal: Denies back pain, Denies muscle weakness, Denies neck pain, Denies numbness and Denies tingling Integumentary/Breasts Skin/Breast: Denies pruritus, Denies erythema, Denies rash and Denies wounds Neurologic Neurologic: Denies behavioral changes, Denies confusion, Denies dizziness, Reports syncope, Denies frequent falls, Denies loss of vision, Denies numbness, Denies tingling and Denies weakness Psychiatric Psychiatric: Denies anxiety, Denies behavioral changes, Denies confusion, Denies depression, Denies homicidal ideation and Denies suicidal ideation Endocrine Endocrine: Denies fatigue, Denies flushing and Denies palpitations Hematologic/Lymphatic Hematologic/Lymphatic: Denies easy bruising Allergic/Immunologic Allergic/Immunologic: Denies urticaria, Denies throat swelling and Denies wheezing Patient History Medical History Asthma (Chronic) Chicken pox (Resolved) HTN (hypertension) (Acute) Measles (Resolved) Social History Smoking Status: Former smoker Smoking Status: Former smoker Exam Narrative Exam Narrative: GENERAL: [59] year old patient appears stated age. Well-nourished, well-developed patient, in mild distress. HEAD: Atraumatic. Normocephalic. EYES: Pupils equal round and reactive. Extraocular motions intact. No scleral icterus. No injection or drainage. ENT: Nose without bleeding, purulent drainage. Throat without erythema, tonsillar hypertrophy or exudate. Airway patent. NECK: Trachea midline. Non tender CARDIOVASCULAR: Regular rate and rhythm without murmurs, gallops, or rubs. RESPIRATORY: Clear to auscultation. Breath sounds equal bilaterally. No wheezes, rales, or rhonchi. GASTROINTESTINAL: Abdomen soft, non-tender, nondistended. EXTREMITIES: No edema or joint tenderness. BACK: Nontender without deformity or crepitance. No flank tenderness. NEURO: AOx3. SKIN: No rash or erythema of visible areas Initial Vital Signs Initial Vital Signs: Vital Signs Temperature 98.2 F 01/22/20 13:20 Pulse Rate 87 01/22/20 13:20 Respiratory Rate 20 01/22/20 13:20 Blood Pressure 136/74 01/22/20 13:20 Pulse Oximetry 100 01/22/20 13:20 Course Orders Ordered: ED Orders 01/22/20 14:15 Complete Blood Count AUTO DIFF Stat Comprehensive Metabolic Panel Stat Cortisol Random Stat D Dimer Stat NT-proBNP (BNP-Adult 18+) Stat Procalcitonin Stat Troponin & CK Cardiac Panel Stat 01/22/20 14:23 Lactate (Lactic Acid) Stat 01/22/20 14:40 CT chest abd pel w con Stat 01/22/20 15:49 EKG-12 Lead Stat Discontinued Medications Sodium Chloride (Normal Saline 0.9%) 500 mls @ 1,000 mls/hr IV BOLUS ONE Stop: 01/22/20 16:31 Last Infusion: 01/22/20 16:42 Dose: 0 mls/hr Documented by: Admin: 01/22/20 16:00 Dose: 1,000 mls/hr Documented by: RON Prednisone (Deltasone) 20 mg PO NOW ONE Stop: 01/22/20 17:58 Last Admin: 01/22/20 18:09 Dose: 20 mg Documented by: RON Vital Signs Vital signs: Vital Signs - 8 hr 01/22/20 13:20 01/22/20 16:55 01/22/20 18:11 Temperature 98.2 F Pulse Rate 87 104 H 70 Respiratory Rate 20 16 24 Blood Pressure 136/74 Blood Pressure [Left Arm] 104/56 L 102/60 Pulse Oximetry 100 100 98 MDM - Syncope Lab Data Result diagrams: 01/22/20 14:15 01/22/20 14:15 Labs: Lab Results 01/22/20 01/22/20 01/22/20 Range/Units 14:15 14:15 14:15 WBC 9.5 (4.5-11.0) X10^3/uL RBC 4.28 L (4.5-5.9) X10^6/uL Hgb 11.8 L (13.5-17.5) g/dL Hct 35.0 L (41-53) % MCV 81.8 (80-100) fL MCH 27.5 (26-34) PG MCHC 33.6 (30-36) % RDW 17.5 H (11.6-14.8) % Plt Count 158 (150-400) X10^3/uL Neut % (Auto) 94.5 H (50-75) % Lymph % (Auto) 1.9 L (25-40) % Gilliam % (Auto) 2.7 L (3-14) % Eos % (Auto) 0.6 L (2-4) % Baso % (Auto) 0.3 (0-2) % Neut # (Auto) 8900 H (6634-0902) /uL Lymph # (Auto) 200 L (1715-3933) /uL Gilliam # (Auto) 300 (0-900) /uL Eos # (Auto) 100 (0-450) /uL Baso # (Auto) 0 (0-100) /uL D-Dimer 321 H (<230) ng/mL Sodium 131 L (137-145) mmol/L Potassium 4.9 (3.4-5.1) mmol/L Chloride 100 (98-107) mmol/L Carbon Dioxide 21 L (22-32) mmol/L BUN 30 H (9-20) mg/dL Creatinine 1.00 (0.66-1.25) mg/dL Estimated GFR > 60.0 (>60) mL/min BUN/Creatinine Ratio 30.0 H (6-22) Glucose 225 H (80-110) mg/dL Lactate (0.7-2.1) mmol/L Calcium 8.7 (8.4-10.2) mg/dL Total Bilirubin 0.9 (0.2-1.3) mg/dL AST 21 (17-59) IU/L ALT 21 (<50) IU/L Alkaline Phosphatase 48 (38-126) U/L Total Creatine Kinase < 20 L (55-170) U/L CK-MB (CK-2) TNP CK-MB (CK-2) Rel Index TNP Troponin I < 0.012 (0.01-0.034) ng/mL NT-Pro-B Natriuret Pep 255 H (<125) pg/mL Total Protein 6.7 (6.3-8.2) g/dL Albumin 3.7 (3.5-5.0) g/dL Globulin 3.0 (1.7-4.1) g/dL Albumin/Globulin Ratio 1.2 (1.0-2.8) Procalcitonin (<0.5) ng/mL Random Cortisol ug/dL 01/22/20 01/22/20 01/22/20 Range/Units 14:15 14:15 14:23 WBC (4.5-11.0) X10^3/uL RBC (4.5-5.9) X10^6/uL Hgb (13.5-17.5) g/dL Hct (41-53) % MCV (80-100) fL MCH (26-34) PG MCHC (30-36) % RDW (11.6-14.8) % Plt Count (150-400) X10^3/uL Neut % (Auto) (50-75) % Lymph % (Auto) (25-40) % Gilliam % (Auto) (3-14) % Eos % (Auto) (2-4) % Baso % (Auto) (0-2) % Neut # (Auto) (9867-0210) /uL Lymph # (Auto) (0953-3615) /uL Gilliam # (Auto) (0-900) /uL Eos # (Auto) (0-450) /uL Baso # (Auto) (0-100) /uL D-Dimer (<230) ng/mL Sodium (137-145) mmol/L Potassium (3.4-5.1) mmol/L Chloride (98-107) mmol/L Carbon Dioxide (22-32) mmol/L BUN (9-20) mg/dL Creatinine (0.66-1.25) mg/dL Estimated GFR (>60) mL/min BUN/Creatinine Ratio (6-22) Glucose (80-110) mg/dL Lactate 1.7 (0.7-2.1) mmol/L Calcium (8.4-10.2) mg/dL Total Bilirubin (0.2-1.3) mg/dL AST (17-59) IU/L ALT (<50) IU/L Alkaline Phosphatase (38-126) U/L Total Creatine Kinase (55-170) U/L CK-MB (CK-2) CK-MB (CK-2) Rel Index Troponin I (0.01-0.034) ng/mL NT-Pro-B Natriuret Pep (<125) pg/mL Total Protein (6.3-8.2) g/dL Albumin (3.5-5.0) g/dL Globulin (1.7-4.1) g/dL Albumin/Globulin Ratio (1.0-2.8) Procalcitonin 0.36 (<0.5) ng/mL Random Cortisol 9.56 ug/dL Imaging Data CT scan - abdomen/pelvis: Radiologist's Impression: Betito Michaud Guillermo 59 M 1960 [place] [address] CT Scan Report Signed Patient: Betito Michaud EMR#: [id number] : [id number]:[id number] Age/Sex: 59 / MDate of Service: 01/22/20 Loc: ED Accession Number: [id number] Procedure: CT chest abd pel w con Ordering Provider: Marck Flor D.O. PROCEDURE: CT CHEST ABD PEL W CON INDICATIONS: syncope, elevated DDimer, unexplained weight loss TECHNIQUE: After the administration of intravenous contrast, 5 mm thick sections acquired from the lung apices to the symphysis. 5 mm coronal and sagittal reformats were performed, with additional 7 mm MIP reformats through the lungs. For radiation dose reduction, the following was used: automated exposure control, adjustment of mA and/or kV according to patient size. COMPARISON: [facility], CT, CT BIOPSY BONE DEEP, 01/01/2020, 10:20. [facility], CT, CT CHEST ABD PEL WO CON, 01/06/2020, 14:11. FINDINGS: Image quality: Excellent. CHEST: Lungs and pleura: No acute airspace opacities. Lung scarring is again noted at the anterior and anterolateral upper lobes bilaterally No pleural effusions or pneumothorax. Central and peripheral airways appear patent and normal in caliber. An osteolytic process has not significantly worsened involving a right upper rib which can be seen laterally on series 3 image 95. An additional osteolytic process involves the mid chest on the left anterolaterally where a similar appearing rib destructive process has been previously present, best seen centered on series 2 image 27. Mediastinum: Heart size is normal. No pericardial effusion. No mediastinal or hilar adenopathy by size criteria. Thoracic aorta and central pulmonary arteries are normal in size. Esophagus is normal in caliber. No hiatal hernia. Chest wall: No axillary or supraclavicular adenopathy by size criteria. Thyroid gland appears normal. ABDOMEN: Solid organs: Liver is normal in size and enhancement. Gallbladder appears normal. Biliary system is non dilated. Pancreas enhances normally. Spleen is normal in size and mildly heterogeneous in enhancement, but this is in the early phase of contrast enhancement touch heterogeneity. No adrenal nodules. Kidneys demonstrate normal size and enhancement, without hydronephrosis. Peritoneum and bowel: Bowel loops demonstrate normal wall thickness and caliber. No free fluid or air. Nodes and vessels: No retroperitoneal or mesenteric adenopathy by size criteria. Aorta and inferior vena cava are normal in size. Miscellaneous: No ventral hernias. PELVIS: Genitourinary: Bladder wall thickness is normal. Miscellaneous: No inguinal hernias or adenopathy. Again noted is an osteolytic process with a pathologic fracture involving the anterior aspect of the right iliac bone centered on series 2 image 102. This appears to be slightly enlarged. There is a densely sclerotic focus within the left margin of the mid vertebral body seen on series 2 image 87. Bones: No new suspicious bony lesions, but marrow space heterogeneity is present in this patient 2 the degree of extensive airspace metastatic disease is suspected within the pelvis. No vertebral body compression fractures. IMPRESSION: 1. Osteolytic and osteoblastic metastatic disease. The marrow space is heterogeneous to the degree that extensive medullary metastasis may be present. MR scanning utilizing marrow space evaluation pulse sequences without and with contrast may be warranted. 2. A primary site of malignancy as source of osseous metastatic disease is not found. 3. A source of generalized malaise and progressive weight loss beyond the evident neoplastic process described above is not identified. Dictated by: Ector Rawls M.D. on 01/22/2020 at 17:23 Approved by: Ector Rawls M.D. on 01/22/2020 at 17:35 MDM Narrative Medical decision making narrative: patient with very complex medical history has episodes of lightheadedness each morning since beginning a taper of his prednisone and feels significant improvement after taking his daily prednisone presents at the request of his infection Disease provider at [facility]. Patient asymptomatic for the duration of his visit and after a very reassuring physical exam, labs as baseline and imaging without significant change I discussed the case with and we sure the opinion that bring his prednisone dosing back up to 40 mg daily is appropriate with close follow-up and return precautions. Patient has had questions answered to his apparent satisfaction Discharge Plan Departure Patient Disposition: Home Clinical Impression: Acute hypotension Discharge Date/Time: 01/22/20 18:27 Instructions: DI for Syncope in Adults (Fainting) Activity Restrictions/Additional Instructions: *You have been diagnosed with [ acute episodic hypotension, likely secondary to your prednisone taper] *What to do: *Take medications as directed: Please start taking Prednisone 40mg daily *Follow up with your primary care provider in 2-3 days, call for an appointment. Let them know you were seen in the Emergency Department and that we ask that you be seen in follow up *Return to ER if you should have any new, worsening or concerning symptoms Prescriptions: No Action acetaminophen 325 mg Tablet 325 mg PO PRN PRN (Reason: pain) RF: 0 prednisone 10 mg Tablet 25 mg PO DAILY RF: 0 Referrals: Prosper Cheek DO [Primary Care Provider] -
[2020-01-22 14:24] LABS: Add Manual Diff / Slide Review NO; Basophils Absolute Auto 0 /uL (0-100); Basophils Percent Auto 0.3 % (0-2); Eosinophils Absolute Auto 100 /uL (0-450); Eosinophils Percent Auto 0.6 % (2-4); Hemoglobin 11.8 g/dL (13.5-17.5); Lymphocytes Absolute Auto 200 /uL (1100-4500); Lymphocytes Percent Auto 1.9 % (25-40); Mean Corpuscular HGB Conc 33.6 % (30-36); Mean Corpuscular Hemoglobin 27.5 PG (26-34); Mean Corpuscular Volume 81.8 fL (80-100); Monocytes Absolute Auto 300 /uL (0-900); Monocytes Percent Auto 2.7 % (3-14); Neutrophils Absolute Auto 8900 /uL (1500-7000); Neutrophils Percent Auto 94.5 % (50-75); Platelet Count 158 X10^3/uL (150-400); Red Blood Cell Count 4.28 X10^6/uL (4.5-5.9); Red Cell Distribution Width 17.5 % (11.6-14.8); White Blood Cell Count 9.5 X10^3/uL (4.5-11.0)
[2020-01-22 14:34] LABS: D Dimer 321 ng/mL (<230)
[2020-01-22 14:40] LABS: Alanine Aminotransferase 21 IU/L (<50); Albumin 3.7 g/dL (3.5-5.0); Albumin Globulin Ratio 1.2 (1.0-2.8); Alkaline Phosphatase 48 U/L (38-126); Aspartate Aminotransferase 21 IU/L (17-59); Bilirubin Total 0.9 mg/dL (0.2-1.3); Blood Urea Nitrogen 30 mg/dL (9-20); Calcium 8.7 mg/dL (8.4-10.2); Carbon Dioxide 21 mmol/L (22-32); Chloride 100 mmol/L (98-107); Creatine Kinase < 20 U/L (55-170); Estimated Glomerular Filt Rate > 60.0 mL/min (>60); Glucose 225 mg/dL (80-110); Potassium 4.9 mmol/L (3.4-5.1); Sodium 131 mmol/L (137-145); Total Protein 6.7 g/dL (6.3-8.2)
--- NOTE | 2020-01-22 14:40 | DI.CT.S_ITS ---
PROCEDURE: CT CHEST ABD PEL W CON INDICATIONS: syncope, elevated DDimer, unexplained weight loss TECHNIQUE: After the administration of intravenous contrast, 5 mm thick sections acquired from the lung apices to the symphysis. 5 mm coronal and sagittal reformats were performed, with additional 7 mm MIP reformats through the lungs. For radiation dose reduction, the following was used: automated exposure control, adjustment of mA and/or kV according to patient size. COMPARISON: [facility], CT, CT BIOPSY BONE DEEP, 01/01/2020, 10:20. [facility], CT, CT CHEST ABD PEL WO CON, 01/06/2020, 14:11. FINDINGS: Image quality: Excellent. CHEST: Lungs and pleura: No acute airspace opacities. Lung scarring is again noted at the anterior and anterolateral upper lobes bilaterally No pleural effusions or pneumothorax. Central and peripheral airways appear patent and normal in caliber. An osteolytic process has not significantly worsened involving a right upper rib which can be seen laterally on series 3 image 95. An additional osteolytic process involves the mid chest on the left anterolaterally where a similar appearing rib destructive process has been previously present, best seen centered on series 2 image 27. Mediastinum: Heart size is normal. No pericardial effusion. No mediastinal or hilar adenopathy by size criteria. Thoracic aorta and central pulmonary arteries are normal in size. Esophagus is normal in caliber. No hiatal hernia. Chest wall: No axillary or supraclavicular adenopathy by size criteria. Thyroid gland appears normal. ABDOMEN: Solid organs: Liver is normal in size and enhancement. Gallbladder appears normal. Biliary system is non dilated. Pancreas enhances normally. Spleen is normal in size and mildly heterogeneous in enhancement, but this is in the early phase of contrast enhancement touch heterogeneity. No adrenal nodules. Kidneys demonstrate normal size and enhancement, without hydronephrosis. Peritoneum and bowel: Bowel loops demonstrate normal wall thickness and caliber. No free fluid or air. Nodes and vessels: No retroperitoneal or mesenteric adenopathy by size criteria. Aorta and inferior vena cava are normal in size. Miscellaneous: No ventral hernias. PELVIS: Genitourinary: Bladder wall thickness is normal. Miscellaneous: No inguinal hernias or adenopathy. Again noted is an osteolytic process with a pathologic fracture involving the anterior aspect of the right iliac bone centered on series 2 image 102. This appears to be slightly enlarged. There is a densely sclerotic focus within the left margin of the mid vertebral body seen on series 2 image 87. Bones: No new suspicious bony lesions, but marrow space heterogeneity is present in this patient 2 the degree of extensive airspace metastatic disease is suspected within the pelvis. No vertebral body compression fractures. IMPRESSION: 1. Osteolytic and osteoblastic metastatic disease. The marrow space is heterogeneous to the degree that extensive medullary metastasis may be present. MR scanning utilizing marrow space evaluation pulse sequences without and with contrast may be warranted. 2. A primary site of malignancy as source of osseous metastatic disease is not found. 3. A source of generalized malaise and progressive weight loss beyond the evident neoplastic process described above is not identified. Dictated by: Ector Rawls M.D. on 01/22/2020 at 17:23 Approved by: Ector Rawls M.D. on 01/22/2020 at 17:35
[2020-01-22 14:43] LABS: HEMOLYSIS 73 (0-50)
[2020-01-22 14:50] LABS: Troponin I < 0.012 ng/mL (0.01-0.034)
[2020-01-22 14:59] LABS: Lactate (Lactic Acid) 1.7 mmol/L (0.7-2.1)
[2020-01-22 15:02] LABS: Procalcitonin 0.36 ng/mL (<0.5)
[2020-01-22 15:09] LABS: Cortisol Random 9.56 ug/dL
[2020-01-22 15:11] LABS: NT-proBNP (BNP-Adult 18+) 255 pg/mL (<125)
[2020-01-22] MEDS: SODIUM CHLORIDE 0.9% 500 ML 1000 ML IV (16:00)
[2020-01-22 16:55] VITALS: BP 104/56; PULSE 104; RESP 16; O2SAT 100
--- NOTE | 2020-01-22 17:02 | PC.NURSE ---
Full infusion of 500 mL NS recieved by patient prior to CT scan.
[2020-01-22] MEDS: predniSONE 20 MG TABLET PO (18:09)
[2020-01-22 18:11] VITALS: BP 102/60; PULSE 70; RESP 24; O2SAT 98
== END 2020-01-22 18:27 | disposition home or self-care (01) ==
PROVIDERS: Emergency Provider Emergency Medicine; PCP Family Medicine
DX: I95.9 Hypotension, unspecified (principal); R55 Syncope and collapse; R63.4 Abnormal weight loss
CPT/HCPCS: 36415; 71260; 74177; 80053; 82533; 82550; 83605; 83880; 84145; 84484; 85025; 85379; 93005; 96360; 99284

== ENCOUNTER → 2020-02-05 11:25 | Outpatient (CLI) | payer OTHER, MEDICAID, SELFPAY ==
[2020-02-05 12:41] LABS: Add Manual Diff / Slide Review NO; Basophils Absolute Auto 0 /uL (0-100); Basophils Percent Auto 0.2 % (0-2); Eosinophils Absolute Auto 100 /uL (0-450); Eosinophils Percent Auto 1.1 % (2-4); Hematocrit 39.3 % (41-53); Hemoglobin 13.1 g/dL (13.5-17.5); Lymphocytes Absolute Auto 200 /uL (1100-4500); Lymphocytes Percent Auto 3.2 % (25-40); Mean Corpuscular HGB Conc 33.4 % (30-36); Mean Corpuscular Hemoglobin 27.7 PG (26-34); Mean Corpuscular Volume 82.9 fL (80-100); Monocytes Absolute Auto 200 /uL (0-900); Monocytes Percent Auto 3.6 % (3-14); Neutrophils Absolute Auto 4600 /uL (1500-7000); Neutrophils Percent Auto 91.9 % (50-75); Platelet Count 220 X10^3/uL (150-400); Red Blood Cell Count 4.74 X10^6/uL (4.5-5.9); Red Cell Distribution Width 17.3 % (11.6-14.8); White Blood Cell Count 5.1 X10^3/uL (4.5-11.0)
[2020-02-05 13:06] LABS: Blood Urea Nitrogen 25 mg/dL (9-20); Calcium 9.7 mg/dL (8.4-10.2); Carbon Dioxide 24 mmol/L (22-32); Chloride 102 mmol/L (98-107); Estimated Glomerular Filt Rate > 60.0 mL/min (>60); Glucose 69 mg/dL (80-110); HEMOLYSIS < 15 (0-50); Potassium 4.4 mmol/L (3.4-5.1); Sodium 136 mmol/L (137-145)
== END ==
PROVIDERS: PCP Family Medicine; Referring Provider Internal Medicine Nephrology; Visit Provider Internal Medicine Nephrology
DX: N05.9 Unspecified nephritic syndrome with unspecified morphologic changes (principal); D70.9 Neutropenia, unspecified
CPT/HCPCS: 36415; 80048; 85025

== ENCOUNTER → 2020-03-31 13:40 | Oncology outpatient (ONC) | payer OTHER, MEDICAID, SELFPAY ==
[2019-12-30 11:39] VITALS: BP 107/65; PULSE 95; RESP 16; O2SAT 99
--- NOTE | 2019-12-30 11:41 | ONC.MSW ---
Description: New Pt F/F Visit Activity: Met with pt for first f/f visit, provided services card and briefly explained some of the resources and assistance available here in clinic. He has no identified needs at this time, will continue to monitor for adjustment to diagnosis and treatment.
--- NOTE | 2019-12-30 18:02 | ONC.CONS ---
History of Present Illness - Data of Consult Primary Care Provider: Prosper Cheek, DO - Consult Narrative Reason for consult: Presumed metastatic disease in the bone (pelvic MRI) Narrative: Betito Michaud is a 59 year old male with prior history of smoking of 25 pack year, quitting at age 39. The patient has had severe continues constitutional symptoms with 40 lb weight loss over the past 9 months, mild cough voice hoarseness for 6 months and severe loss of appetite and back pain and abnormal gait due to discomfort in the pelvis and back He was seeing Rheumatology for evaluation of possible polymyalgia rheumatica. He presented on December 08, 2019 with acute renal failure of unclear etiology, creatinine 4.6. I do not have any older comparisons are available. His CBC did not show any significant abnormality with a white count of 8.4, hemoglobin 12 platelets normal. His chemistry showed a total total protein of 5.8 and an albumin of 3.2. Serum protein electrophoresis showing an incidental band of 0.2 gram/deciliter. No systemic imaging has been performed Patient was seen on December 10, [address] Barnhart as Nephrology consult and was set up for a renal biopsy to assess the etiology of renal failure on December 23 at [place], no path currently available. Renal ultrasound showed no abnormalities structurally in the kidneys His creatinine has partially spontaneously improved to around 2.5 He has had an MRI of the lumbar spine in September 2019 showing some disc disease at L5 Older PSA of April 2019 normal with 2.[address] Alex Rush on December 09, 2019 who ordered an MRI of the pelvis with contrast, performed on December 18, 2019 MRI pelvis showed extensive abnormalities suggestive for metastatic disease to the pelvic bone: Bone marrow shows multifocal abnormal signal in all sequences. 5.7 x 4.9 x 5.5 cm metastatic appearing mass in the left sacrum Significant abnormality in the right iliac wing with an osteolytic process eroding through the medial cortex as tumor infiltration with presumed involvement of the adjacent medial iliacus musculature Abnormalities also involving the right femoral neck Several mildly enlarged hyperenhancing nodes in the external iliac chain on the right CC: Edin Henderson MD Home Medications and Allergies Home Medications Medication Instructions Recorded Confirmed Type prednisone 2.5 mg tablet 2.5 mg PO DAILY #45 tab 10/15/19 12/30/19 Rx ibuprofen 600 mg tablet 600 mg PO TID PRN #90 tab 11/18/19 12/30/19 Rx prednisone 5 mg tablet 5 mg PO DAILY #90 tab 11/18/19 12/30/19 Rx Allergies Allergy/AdvReac Type Severity Reaction Status Date / Time CAT DANDER Allergy Unknown Uncoded 09/15/19 12:26 Medical History - Medical, Surgical, Family History Medical History: Medical History (Last Reviewed 09/15/19 @ 14:55 by Amy Espinoza MD) Asthma Chicken pox HTN (hypertension) Measles - Social History Smoking Status: Former smoker Review of Systems - Patient Self-Reported Symptoms SR Constitution: Fever, Chills, Weight loss/gain, Fatigue/Malaise, Night Sweats SR eye issues: Vision changes SR ears, nose, mouth, throat issues: Ears ringing SR respiratory issues: Shortness of breath SR Skin issues: Dry skin, Hair loss or scalp prob SR Gastrointestinal issues: Poor or no appetite, Change in bowel pattern, Diarrhea, Constipation SR Genitourinary issues: Frequent urination, Change in stream SR Musculoskeletal issues: Muscle weakness, Muscle pain or cramps, Back or neck pain SR Neuro issues: Lightheaded/dizzy, Tremors or shaking SR Endocrine issues: Excessive thirst, Excessive urination Exam Vital signs: Vital Signs Pulse Resp BP Pulse Ox 12/30/19 11:39 95 H 16 107/65 99 Intake and Output 12/30/19 12/30/19 12/30/19 07:59 15:59 23:59 Other: Weight 67.1 kg Patient Weight 12/30/19 23:59 Weight 67.1 kg - Constitutional positive moderate distress, positive thin - Routine Neck Exam Absent: lymphadenopathy - Routine Chest/Breast/Axilla Exam Axillae: Absent: lymphadenopathy - Routine Respiratory Exam Present: Clear to auscultation bilaterally - Routine Cardiovascular Exam Present: RRR - Routine Abdominal Exam Present: soft. Absent: rebound, mass - Routine Extremities Exam Absent: edema - Routine Skin Exam Absent: rash (ECOG PS 2. Patient appears weak and has a slow gait due to pain in the right hip. He can bear weight on his right leg, no clinical evidence of fracture) - Routine Neurological Exam Present: oriented X3 Results - Imaging Additional studies: Procedures Other and open bilateral repair of direct inguinal hernia with graft or prosthesis (12/15/13) Assessment and Plan (1) Bone mass Current visit: Yes Status: Acute 59-year-old gentleman with history of smoking who present for oncology evaluation for presumed metastatic disease to the skeletal system. He has no tissue diagnosis. He has had the extended symptomatology over the past 6-9 months with 40 lb weight loss, poor appetite, lower back and pelvic pain, difficulty with ambulation and stenting and change in his voice and shortness of breath. He lives by himself in [place]. 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 Barnhart of Nephrology within normal renal ultrasound Alison without any significant abnormality on his serum protein electrophoresis with an abnormal appearing band of 0.2 gram/deciliter. However his total protein was in the lower range of 5.8 and an albumin of 3.2 making multiple myeloma less likely. Also his hemoglobin was near normal with 12. His creatinine had spontaneously improved to 2.5. Some of this could have also been due to excessive usage of NSAIDs for pain and dehydration. A kidney biopsy has been done on December 23 at [place] to assess etiology of renal failure, results pending MRI pelvis with and without contrast ordered by Dr. Alex Rush of Rheumatology who was evaluating him for polymyalgia rheumatica revealed extensive abnormalities in the pelvic bones as described above: Mass lesion in the left sacrum measuring about 5 cm. Destructive and infiltrative process in the right iliac wing with invasion into the adjacent iliac musculature Previous PSA of April 2019 was normal with 2.3 Main differential diagnosis is a metastatic disease of a primary solid tumor that needs to be worked up. I am obtaining serum immunofixation as well as serum free light chain assay to rule out possibility of mono colon, petit although less likely CT-guided percutaneous biopsy of the mass in the pelvic bone, per radiology the right iliac mass appears most accessible, followed by the left sacral mass, for tissue diagnosis. CT chest abdomen and pelvis without contrast (renal insufficiency) to evaluate for potential sources of his malignancy including lung cancer, and rule out other sites of disease involvement. Follow up with me in 1 week (2) Weight loss Current visit: Yes Status: Acute (3) Renal insufficiency Current visit: Yes Status: Acute (4) Voice hoarseness Current visit: Yes Status: Acute (5) SOB (shortness of breath) Current visit: Yes Status: Acute
--- NOTE | 2020-01-04 12:14 | ONC.SCHED ---
Waiting for Dr. Henderson to do peer to peer on CT chest. labs and Ct bone biopsy have been done.
--- NOTE | 2020-01-06 13:50 | ONC.SCHED ---
Dr. Henderson got an auth for Chest CT via peer to peer #[id number]. The abd/pelvis did not require PA ref call dte 12/31/19 1:30PM PST.
[2020-01-06 17:42] VITALS: BP 129/71; PULSE 76; RESP 16; TEMP 36.4; O2SAT 100
--- NOTE | 2020-01-06 18:10 | P.PNONC_ITS ---
PN -Subjective Interval history: Initial consult me on December 30, 2019 for destructive mass in the pelvic bone of unclear etiology and recently developed acute renal failure HPI: Betito Michaud is a 59 year old male with prior history of smoking of 25 pack year, quitting at age 39. The patient has had severe continues constitutional symptoms with 40 lb weight loss over the past 9 months, mild cough voice hoarseness for 6 months and severe loss of appetite and back pain and abnormal gait due to discomfort in the pelvis and back He was seeing Rheumatology for evaluation of possible polymyalgia rheumatica. He presented on December 08, 2019 with acute renal failure of unclear etiology, creatinine 4.6. His CBC did not show any significant abnormality with a white count of 8.4, hemoglobin 12 platelets normal. His chemistry showed a total total protein of 5.8 and an albumin of 3.2. Serum protein electrophoresis showing an incidental band of 0.2 gram/deciliter. No systemic imaging has been performed. Patient was seen on December 10, [address] Barnhart as Nephrology consult and was set up for a renal biopsy to assess the etiology of renal failure on December 23 at [place]. Pathology report from 7 at 6 with 2nd opinion at [facility] for kidney biopsy: Granulomatous interstitial nephritis. Acute tubular injury. C3 dominant immune complex deposition by IHC. focal global glomerulosclerosis Renal ultrasound showed no abnormalities structurally in the kidneys His creatinine has partially spontaneously improved to around 2.5, then 2.1. He has had an MRI of the lumbar spine in September 2019 showing some disc disease at L5 Older PSA of April 2019 normal with 2.[address] Alex Rush on December 09, 2019 who ordered an MRI of the pelvis with contrast, performed on December 18, 2019 MRI pelvis showed extensive abnormalities suggestive for metastatic disease to the pelvic bone: Bone marrow shows multifocal abnormal signal in all sequences. 5.7 x 4.9 x 5.5 cm metastatic appearing mass in the left sacrum Significant abnormality in the right iliac wing with an osteolytic process eroding through the medial cortex as tumor infiltration with presumed involvement of the adjacent medial iliacus musculature Abnormalities also involving the right femoral neck Several mildly enlarged hyperenhancing nodes in the external iliac chain on the right Interval history: Patient comes for follow-up in 1 week interval after multiple diagnostic tests CT-guided biopsy of left upper sacrum lesion January 01, 2020 at [facility] by Dr. Mazariegos: [place] pathology: Spindle cell lesion of uncertain origin The specimen is sent to [facility] for 2nd opinion to rule out a low-grade spindle cell neoplasm. CT scan of chest abdomen and pelvis without contrast of January 06, 2019: No lung mass, no pleural effusion, no systemic lymphadenopathy above the pelvis, no liver lesion. Pathologic right inguinal/external iliac lymph node measuring 2.9 x 2.2 cm. Additional abnormal enlarged right inguinal lymph node measuring 1.1 x 2.1 cm. Bones: There is a ill-defined lytic permeative destructive lesion involving the right iliac wing with associated pathologic fracture and soft tissue mass involving the right iliacus muscle. There is subtle lucency involving the medial right iliac bone and left sacrum and medial left iliac bone. Subtle lucency present involving the anterior aspect of the right femoral neck. Question bone island, left lateral aspect of L4. Comment: If the previous biopsy that was performed of the left sacrum is indeterminate, the right iliac wing could be biopsied alternatively, the larger of the 2 right inguinal lymph nodes could be biopsied instead. - Patient Self-Reported Symptoms SR Constitution: Weight loss/gain SR eye issues: Vision changes SR ears, nose, mouth, throat issues: Hoarseness SR respiratory issues: Shortness of breath SR Cardiovascular issues: Dizzy/lightheaded SR Skin issues: Dry skin, Hair loss or scalp prob SR Gastrointestinal issues: Poor or no appetite, Change in bowel pattern, Con stipation SR Genitourinary issues: Frequent urination SR Musculoskeletal issues: Muscle weakness, Muscle pain or cramps, Back or neck pain SR Neuro issues: Lightheaded/dizzy, Tremors or shaking SR Endocrine issues: Excessive thirst, Excessive urination Home Medications and Allergies Home Medications Medication Instructions Recorded Confirmed Type prednisone 2.5 mg tablet 2.5 mg PO DAILY #45 tab 10/15/19 12/30/19 Rx ibuprofen 600 mg tablet 600 mg PO TID PRN #90 tab 11/18/19 12/30/19 Rx prednisone 5 mg tablet 5 mg PO DAILY #90 tab 11/18/19 12/30/19 Rx Allergies Allergy/AdvReac Type Severity Reaction Status Date / Time CAT DANDER Allergy Unknown Uncoded 09/15/19 12:26 Exam Vital signs: Vital Signs Temp Pulse Resp BP Pulse Ox 01/06/20 17:42 97.6 F 76 16 129/71 100 Intake and Output 01/06/20 01/06/20 01/06/20 07:59 15:59 23:59 Other: Weight 67.9 kg Patient Weight 01/06/20 23:59 Weight 67.9 kg - Constitutional positive no acute distress - Routine Chest/Breast/Axilla Exam Axillae: Absent: lymphadenopathy - Routine Respiratory Exam Present: Clear to auscultation bilaterally - Routine Cardiovascular Exam Present: RRR - Routine Extremities Exam Absent: edema - Routine Skin Exam Absent: rash - Routine Neurological Exam Present: oriented X3 (There is a palpable small deep right inguinal lymph node, approximately 1 cm.) Results - Imaging Additional studies: Procedures Other and open bilateral repair of direct inguinal hernia with graft or prosthesis (12/15/13) Assessment and Plan (1) Bone mass Current visit: Yes Status: Acute 59-year-old gentleman with history of smoking who present for oncology evaluation for presumed metastatic disease to the skeletal system. He has no tissue diagnosis. He has had the extended symptomatology over the past 6-9 months with 40 lb weight loss, poor appetite, lower back and pelvic pain, difficulty with ambulation, change in his voice and shortness of breath. He lives by himself in [place]. 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 Barnhart of Nephrology within normal renal ultrasound Alison without any significant abnormality on his serum protein electrophoresis with an abnormal appearing band of 0.2 gram/deciliter. However his total protein was in the lower range of 5.8 and an albumin of 3.2 making multiple myeloma less likely. Also his hemoglobin was near normal with 12. His creatinine had spontaneously improved to 2.1 Some of this could have also been due to excessive usage of NSAIDs for pain and dehydration. A kidney biopsy has been done on December 23 at [place] to assess etiology of renal failure, which shows some nephritis with C3 immune complex deposition and focal sclerosis, no evidence of myeloma in the kidney This was reviewed also at the [facility]. Dr. Barnhart is planning to treat this empirically with prednisone 60 mg daily which the patient has not started yet, pending review by us. I think it is okay to proceed with prednisone He has an infiltrative and destructive process in pelvic bones of unclear etiology Interim systemic CT scan of chest abdomen and pelvis without IV contrast that was performed today after peer to peer review showed no evidence of systemic malignancy elsewhere, in particular no evidence of lung cancer or metastatic disease to the liver etc. However the destructive process particularly in the right iliac wing as well as left sacrum and slightly enlarged lymph nodes in the right external iliac chain as well as a borderline enlarged lymph node in the right inguinal area that I could palpate today are the only measurable abnormalities. This CT-guided biopsy that I had ordered last week was performed by interventional Radiology from the left sacral process on January 01 without any definitive diagnosis: ?Spindle cell lesion of uncertain origin. It is being sent to [facility] to rule out a low-grade spindle cell neoplasm, results of the 2nd opinion is pending Serum immunofixation and free light chain assay were ordered last week however there were drawn only yesterday and results are also pending. Again a plasma cell neoplasm appears unlikely given the in serum protein electrophoresis and lack of plasma cells in the 2 biopsies. CEA of January 05 was negative I'm adding a PSA to the lab was drawn yesterday. Previous PSA of April 2019 was 2.3 I reviewed the in CT scan of chest abdomen and pelvis with Dr. Mazariegos of Radiology today and with the patient At this point we might have to attempt another biopsy from either the destructive process in the right iliac wing per suggestion of Dr. Mazariegos of radiology, or an excisional biopsy from the small palpable right iliac lymph node (probably less preferred since it might not be related to the same process). At this point the patient would like to await day 2nd opinion results from the left sacral biopsy from [facility] before proceeding. He will come next week pending the and serum immunofixation and free light chain results as well as the [facility] 2nd opinion. If the findings nondiagnostic then he should have a CT-guided percutaneous biopsy of the right iliac wing destructive process. (2) Weight loss Current visit: Yes Status: Acute (3) Renal insufficiency Current visit: Yes Status: Acute (4) Voice hoarseness Current visit: Yes Status: Acute (5) SOB (shortness of breath) Current visit: Yes Status: Acute
--- NOTE | 2020-01-11 09:26 | ONC.SCHED ---
Got patient scheduled on the to go over the bone BX again with Shaquille per Dr. Henderson request. Also, contacted insurance for referral to ENT and no PA required for that. Call ref# is [id number] and today's date.
--- NOTE | 2020-01-11 09:48 | ONC.SCHED ---
referral sent to [facility]
--- NOTE | 2020-01-13 09:22 | ONC.SCHED ---
Spoke with Dr. Leanne Steven, Pathology at ([phone]) (fax: [phone]) Case#[id number]: Sample is extremely small and they continue to try to test further. 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 I forwarded provider notes to aide in her testing.
[2020-01-13 13:26] VITALS: BP 112/69; PULSE 72; RESP 18; TEMP 36.3; O2SAT 97
--- NOTE | 2020-01-13 13:38 | ONC.PN ---
PN -Subjective Interval history: Initial consult me on December 30, 2019 for destructive mass in the pelvic bone of unclear etiology and recently developed acute renal failure HPI: Betito Michaud is a 59 year old male with prior history of smoking of 25 pack year, quitting at age 39. The patient has had severe continues constitutional symptoms with 40 lb weight loss over the past 9 months, mild cough voice hoarseness for 6 months and severe loss of appetite and back pain and abnormal gait due to discomfort in the pelvis and back He was seeing Rheumatology for evaluation of possible polymyalgia rheumatica. He presented on December 08, 2019 with acute renal failure of unclear etiology, creatinine 4.6. His CBC did not show any significant abnormality with a white count of 8.4, hemoglobin 12 platelets normal. His chemistry showed a total total protein of 5.8 and an albumin of 3.2. Serum protein electrophoresis showing an incidental band of 0.2 gram/deciliter. No systemic imaging has been performed. Patient was seen on December 10, [address] Barnhart as Nephrology consult and was set up for a renal biopsy to assess the etiology of renal failure on December 23 at [place]. Pathology report from 7 at 6 with 2nd opinion at [facility] for kidney biopsy: Granulomatous interstitial nephritis. Acute tubular injury. C3 dominant immune complex deposition by IHC. focal global glomerulosclerosis Renal ultrasound showed no abnormalities structurally in the kidneys His creatinine has partially spontaneously improved to around 2.5, then 2.1. He has had an MRI of the lumbar spine in September 2019 showing some disc disease at L5 Older PSA of April 2019 normal with 2.[address] Alex Rush on December 09, 2019 who ordered an MRI of the pelvis with contrast, performed on December 18, 2019 MRI pelvis showed extensive abnormalities suggestive for metastatic disease to the pelvic bone: Bone marrow shows multifocal abnormal signal in all sequences. 5.7 x 4.9 x 5.5 cm metastatic appearing mass in the left sacrum Significant abnormality in the right iliac wing with an osteolytic process eroding through the medial cortex as tumor infiltration with presumed involvement of the adjacent medial iliacus musculature Abnormalities also involving the right femoral neck Several mildly enlarged hyperenhancing nodes in the external iliac chain on the right Interval history: Patient comes for follow-up in 1 week interval after multiple diagnostic tests CT-guided biopsy of left upper sacrum lesion January 01, 2020 at [facility] by Dr. Mazariegos: [place] pathology: Spindle cell lesion of uncertain origin The specimen is sent to [facility] for 2nd opinion to rule out a low-grade spindle cell neoplasm. CT scan of chest abdomen and pelvis without contrast of January 06, 2019: No lung mass, no pleural effusion, no systemic lymphadenopathy above the pelvis, no liver lesion. Pathologic right inguinal/external iliac lymph node measuring 2.9 x 2.2 cm. Additional abnormal enlarged right inguinal lymph node measuring 1.1 x 2.1 cm. Bones: There is a ill-defined lytic permeative destructive lesion involving the right iliac wing with associated pathologic fracture and soft tissue mass involving the right iliacus muscle. There is subtle lucency involving the medial right iliac bone and left sacrum and medial left iliac bone. Subtle lucency present involving the anterior aspect of the right femoral neck. Question bone island, left lateral aspect of L4. Comment: If the previous biopsy that was performed of the left sacrum is indeterminate, the right iliac wing could be biopsied alternatively, the larger of the 2 right inguinal lymph nodes could be biopsied instead. Review of pathology at the [facility] (Dr. Leanne Steven), found a limited sample, which is still being evaluated. Ancillary tests are evaluating whether this is infection versus neoplasm. Studies for possible infectious etiology should be available within 1-2 days. He relates a history of chills and fever with chattering teeth. He had no rash, but skin has been flaking. He has significant arthralgias, particularly in his back, and had a particularly severe episode of lower back pain radiating into his right leg following CT imaging last week. Interestingly, he relates similar symptoms back in 1994, when he had a bull's eye lesion and suspected Lyme disease. - Patient Self-Reported Symptoms SR Constitution: Weight loss/gain, Fatigue/Malaise SR eye issues: Vision changes SR ears, nose, mouth, throat issues: Ears ringing, Congestion, Hoarseness SR respiratory issues: Shortness of breath SR Cardiovascular issues: Dizzy/lightheaded SR Skin issues: Skin rash or itching, Hair loss or scalp prob SR Gastrointestinal issues: Poor or no appetite, Change in bowel pattern, Constipation SR Genitourinary issues: Frequent urination SR Musculoskeletal issues: Muscle weakness, Difficulty walking, Bone pain SR Neuro issues: Tremors or shaking SR Endocrine issues: Excessive thirst, Excessive urination Home Medications and Allergies Home Medications Medication Instructions Recorded Confirmed Type prednisone 60 mg PO DAILY 01/13/20 01/13/20 History Allergies Allergy/AdvReac Type Severity Reaction Status Date / Time CAT DANDER Allergy Unknown Uncoded 09/15/19 12:26 Exam Vital signs: Vital Signs Temp Pulse Resp BP Pulse Ox 01/13/20 13:26 97.4 F L 72 18 112/69 97 Intake and Output 01/12/20 01/13/20 01/13/20 23:59 07:59 15:59 Other: Weight 68.9 kg Patient Weight 01/13/20 23:59 Weight 68.9 kg Narrative: HEENT: Pupils equally round reactive to light extraocular muscles intact sclerae anicteric conjunctiva pink mucous membranes moist no oral lesions Nodes no palpable adenopathy in the neck axilla or groin Chest: Clear throughout Cardiac exam regular rate and rhythm with normal S1 and S2 Abdomen: Soft nontender with normoactive bowel tones no splenomegaly or masses Extremities: Trace pedal edema 2+ distal pulses no calf tenderness Results - Imaging Additional studies: Procedures Other and open bilateral repair of direct inguinal hernia with graft or prosthesis (12/15/13) Assessment and Plan (1) Bone mass Current visit: Yes Status: Acute 59-year-old gentleman with history of smoking who returns for oncology evaluation for possible metastatic disease to the skeletal system. He has no definitive tissue diagnosis. He has had the extended symptomatology over the past 6-9 months with 60 lb weight loss, poor appetite, lower back and pelvic pain, difficulty with ambulation, change in his voice and shortness of breath. This has been associated with severe chills and fever, with chattering teeth. Skin has been flaking excessively. No rashes. he has severe pain in the right hip area. He is no longer able to work. He lives by himself in [place]. 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 He presented in early December 2019 with acute renal failure with a creatinine of 4.6 leading to evaluation by Dr. Barnhart of Nephrology within normal renal ultrasound Alison without any significant abnormality on his serum protein electrophoresis with an abnormal appearing band of 0.2 gram/deciliter. However his total protein was in the lower range of 5.8 and an albumin of 3.2 making multiple myeloma less likely. Also his hemoglobin was near normal with 12. His creatinine has improved to 2.1, currently on prednisone 60 mg by mouth daily, which Dr. Barnhart has recommended he continue for a full month. Part of his renal insufficiency could have also been due to excessive usage of NSAIDs for pain and dehydration. A kidney biopsy on December 23 at [place] to assess etiology of renal failure, showed some nephritis with C3 immune complex deposition and focal sclerosis, no evidence of myeloma in the kidney This was reviewed also at the [facility]. Dr. Barnhart is planning to treat this empirically with prednisone 60 mg daily which the patient has not started yet, pending review by us. He has an infiltrative and destructive process in pelvic bones of unclear etiology. CT scan of chest abdomen and pelvis without IV contrast that was performed 01/06/2020 showed no evidence of systemic malignancy elsewhere, in particular no evidence of lung cancer or metastatic disease to the liver etc. Tissue However there is a destructive process in the right iliac wing as well as left sacrum and slightly enlarged lymph nodes in the right external iliac chain as well as a borderline enlarged lymph node in the right inguinal area. This CT-guided biopsy performed by interventional Radiology from the left sacral process on January 01 showed ?Spindle cell lesion of uncertain origin. It is being sent to [facility] to rule out a low-grade spindle cell neoplasm, results of the 2nd opinion is pending. However, in direct conversation with Dr. Leanne Steven (pathology at [facility], ), this tissue is suspicious for infection. Additional studies for infectious agents was requested, and should be available in the next 1-2 days. Serum immunofixation and free light chain assay were ordered last week however there were drawn only yesterday and results are also pending. Again a plasma cell neoplasm appears unlikely given the in serum protein electrophoresis and lack of plasma cells in the 2 biopsies. CEA of January 05 was negative PSA was unremarkable. At this time, differential diagnosis includes (1) malignancy, in which case he would return to the [facility] immediately to discuss further management, (2) infection, in which case we would refer to Infectious Disease, or (3) nondiagnostic, in which case we would refer for repeat biopsy. As above, we await pathologic review from the [facility]. We will contact the patient when pathology is available. (2) Weight loss Current visit: Yes Status: Acute (3) Renal insufficiency Current visit: Yes Status: Acute (4) Voice hoarseness Current visit: Yes Status: Acute (5) SOB (shortness of breath) Current visit: Yes Status: Acute
--- NOTE | 2020-01-14 17:16 | PC.NURSE ---
PATHOLOGY: I spoke with Dr. shabbir Steven who stated a mycobacterial infection, probably atypical, was found by pathology. No cancer was found. Report was sent today to Dr. Landeros. Dr. Steven will order an AFB PCR test. Dr. Rose informed and given reports of patient's last two visits to take to [facility] tomorrow to speak with Drs. Henderson and Shaquille.
[2020-03-31 13:56] VITALS: BP 114/73; PULSE 78; RESP 18; TEMP 36.6; O2SAT 97
--- NOTE | 2020-03-31 14:22 | P.PNONC_ITS ---
PN -Subjective Interval history: ID/CC: 59 year old male with destructive mass in the pelvic bone of unclear etiology and recently developed acute renal failure HPI: This is the first time I saw the patient who is transferred from my collegue Dr. Isidro Corbin. Per Note, Betito Michaud is a 59 year old male with prior history of smoking of 25 pack year, quitting at age 39. The patient has had severe continues constitutional symptoms with 40 lb weight loss over the past 9 months, mild cough voice hoarseness for 6 months and severe loss of appetite and back pain and abnormal gait due to discomfort in the pelvis and back. He was seeing Rheumatology for evaluation of possible polymyalgia rheumatica. He presented on December 08, 2019 with acute renal failure of unclear etiology, creatinine 4.6. His CBC did not show any significant abnormality with a white count of 8.4, hemoglobin 12 platelets normal. His chemistry showed a total total protein of 5.8 and an albumin of 3.2. Serum protein electrophoresis showing an incidental band of 0.2 gram/deciliter. No systemic imaging has been performed. Patient was seen on December 10, [address] Barnhart as Nephrology consult and was set up for a renal biopsy to assess the etiology of renal failure on December 23 at [place]. Pathology report with 2nd opinion at [facility] on for kidney biopsy: Granulomatous interstitial nephritis. Acute tubular injury. C3 dominant immune complex deposition by IHC. focal global glomerulosclerosis Renal ultrasound showed no abnormalities structurally in the kidneys. His creatinine has partially spontaneously improved to around 2.5, then 2.1. He has had an MRI of the lumbar spine in September 2019 showing some disc disease at L5. Older PSA of April 2019 normal with 2.[address] Alex Rush on December 09, 2019 who ordered an MRI of the pelvis with contrast, performed on December 18, 2019. 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 5.7 x 4.9 x 5.5 cm metastatic appearing mass in the left sacrum, Significant abn ormality in the right iliac wing with an osteolytic process eroding through the medial cortex as tumor infiltration with presumed involvement of the adjacent medial iliacus musculature. Abnormalities also involving the right femoral neck. Several mildly enlarged hyperenhancing nodes in the external iliac chain on the right CT-guided biopsy of left upper sacrum lesion January 01, 2020 at [facility] by Dr. Mazariegos: [place] pathology: Spindle cell lesion of uncertain origin. The specimen is sent to [facility] for 2nd opinion to rule out a low- grade spindle cell neoplasm. CT scan of chest abdomen and pelvis without contrast of January 06, 2019: No lung mass, no pleural effusion, no systemic lymphadenopathy above the pelvis, no liver lesion. Pathologic right inguinal/external iliac lymph node measuring 2.9 x 2.2 cm. Additional abnormal enlarged right inguinal lymph node measuring 1.1 x 2.1 cm. Bones: There is a ill-defined lytic permeative destructive lesion involving the right iliac wing with associated pathologic fracture and soft tissue mass involving the right iliacus muscle. There is subtle lucency involving the medial right iliac bone and left sacrum and medial left iliac bone. Subtle lucency present involving the anterior aspect of the right femoral neck. Question bone island, left lateral aspect of L4. Comment: If the previous biopsy that was performed of the left sacrum is indeterminate, the right iliac wing could be biopsied alternatively, the larger of the 2 right inguinal lymph nodes could be biopsied instead. Review of pathology at the [facility] (Dr. Leanne Steven), found a limited sample, which is still being evaluated. Ancillary tests are evaluating whether this is infection versus neoplasm. Studies for possible infectious etiology should be available within 1-2 days. The final results for review by the [facility] showed no evidence of malignancy. It showed histiocytic/granulomatous inflammation with numerous positive acidfast bacilli in the histiocytes as well as extracellularly consistent with a Mycobacterium infection. Therefore patient was referred to infectious diseases specialist for further evaluation and management. 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 Patient reported that his pain is largely gone. He is not taking any pain medications at present. His energy level was way better with antibiotic treatment. He said he felt great. He denies any fever or chills. Denies nausea or vomiting. Is making big progress. - Patient Self-Reported Symptoms SR Constitution: Weight loss/gain, Fatigue/Malaise SR eye issues: Vision changes SR ears, nose, mouth, throat issues: Ears ringing, Congestion, Hoarseness SR respiratory issues: Shortness of breath SR Cardiovascular issues: Dizzy/lightheaded SR Skin issues: Skin rash or itching SR Gastrointestinal issues: Poor or no appetite, Change in bowel pattern, Const ipation SR Genitourinary issues: Frequent urination SR Musculoskeletal issues: Muscle weakness, Difficulty walking, Bone pain SR Neuro issues: Tremors or shaking SR Endocrine issues: Excessive thirst, Excessive urination - Additional ROS All systems PM: reviewed and no additional remarkable complaints except as stated (those mentioned in HPI, Interval History and SR above.) Home Medications and Allergies Home Medications Medication Instructions Recorded Confirmed Type prednisone 10 mg tablet 10 mg PO DAILY tab 01/27/20 03/31/20 History calcium carbonate-vitamin D3 1 tab PO DAILY 03/31/20 03/31/20 History [Calcium 500 + D] clarithromycin 500 mg PO BID 03/31/20 03/31/20 History ethambutol 400 mg TID 03/31/20 03/31/20 History omeprazole 20 mg PO DAILY 03/31/20 03/31/20 History Allergies Allergy/AdvReac Type Severity Reaction Status Date / Time No Known Drug Allergies Allergy Verified 01/27/20 14:25 Exam Vital signs: Vital Signs Temp Pulse Resp BP Pulse Ox 03/31/20 13:56 98 F 78 18 114/73 97 Intake and Output 03/30/20 03/31/20 03/31/20 23:59 07:59 15:59 Other: Weight 71.7 kg Patient Weight 03/31/20 23:59 Weight 71.7 kg Narrative: ECOG 1 Vitals above reviewed Constitutional: WDWN, well nourished, and well groomed. NAD. Pleasant and cooperative. HEENT: NCAT, EOMI, PERRLA. Anicteric sclera. Neck: Supple and symmetrical, no palpable masses. No palpable thyromegaly. Respiratory: No use of accessory muscles. CTAB, no wheezes. Cardiovascular: RRR, S1 and S2 normal, no M/G/R. No edema of lower extremities. Abdomen: Soft, NTND, no palpable masses. No palpable hepatosplenomegaly. No hernia. Lymphatic: no palpable palpable lymph nodes in the neck, axillae, or groins. Musculoskeletal: normal gait and station Neurological: CN II-XII grossly intact. No focal motor or sensory deficit. Psychiatric: Normal judgment and insight. AOx3. Normal memory (recent and remote). Normal mood and affect. Results - Imaging Additional studies: Procedures Other and open bilateral repair of direct inguinal hernia with graft or prosthesis (12/15/13) Assessment and Plan (1) Bone mass Overview: 59-year-old gentleman with history of smoking. He presented with weight loss, poor appetite, lower back pain in Dec 2009. He was found to have d developed acute renal failure. A kidney biopsy on December 23 at [place] to assess etiology of renal failure, showed some nephritis with C3 immune complex deposition and focal sclerosis, no evidence of myeloma in the kidney. He was found to have an infiltrative and destructive process in pelvic bones of unclear etiology. This CT-guided biopsy performed by interventional Radiology from the left sacral process on January 01 eventually gave the diagnosed of None for review today. 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 Leanne Pardo at the [facility]. He was subsequently referred to infectious disease specialist and currently is being followed by Dr. Villeda. Assessment: Patient was puzzled why he was called to our clinic today. I explained to the patient that the reason he was called here is because that is the follow-up appointment set up by Dr. Isidro Corbin before we knew the final diagnosis of disseminated Mycobacterium infection from [facility]. Now we know he has a mycobacterium infection and currently is being treated under the care of Dr. Villeda. I do not think there is any concern in terms of malignancy. I talked with him that he needs to continue follow-up with ID and I do not see the need to follow up again unless Dr. Villeda feels there is something that we need to see him. He voiced understanding. Plan: No follow up needed at our center. Follow up with Dr. Villeda as scheduled.
== END ==
PROVIDERS: PCP Family Medicine; Visit Provider Internal Medicine Hematology & Oncology
DX: A31.9 Mycobacterial infection, unspecified (principal); M89.8X0 Other specified disorders of bone, multiple sites; N17.9 Acute kidney failure, unspecified; R63.4 Abnormal weight loss; Z87.891 Personal history of nicotine dependence
CPT/HCPCS: 71250; 74176; 99205; 99214; 99215

== ENCOUNTER → 2021-01-03 16:06 | Outpatient (CLI) | payer OTHER, MEDICAID, SELFPAY ==
[2021-01-03 19:15] LABS: Creatinine Urine Random 76.1 mg/dL
[2021-01-03 19:22] LABS: Microalbumi Creatinin Ratio Ur 70.9 ug/mg CR (<30); Microalbumin Urine Random 5.4 mg/dL (0-1.6)
== END ==
PROVIDERS: PCP Family Medicine; Referring Provider Internal Medicine Nephrology; Visit Provider Internal Medicine Nephrology
DX: N17.9 Acute kidney failure, unspecified (principal)
CPT/HCPCS: 82043; 82570